=== PATIENT | male | born 1960 | race African-American/Black ===

== ENCOUNTER 2023-09-04 20:27 | Emergency (ER) | payer BC, OTHER ==
[~2023-09-04] VITALS: Ht 162.6 cm; Wt 69.7 kg
[2023-09-04] MEDS: IBUPROFEN 800 MG TAB PO ONE (22:43)
[2023-09-04] MEDS ORDERED: IBUP-1455 PO (23:46)
[2023-09-04] MEDS ORDERED: ACET500T58 PO (23:46)
[2023-09-04 23:55] VITALS: BP 116/74; PULSE 75; RESP 17; TEMP 98.6; O2SAT 95
== END 2023-09-04 23:59 | disposition home or self-care (01) ==
LOC: ER 20:27
DX: S39.012A Strain of muscle, fascia and tendon of lower back, initial encounter (principal); M54.16 Radiculopathy, lumbar region; V89.2XXA Person injured in unspecified motor-vehicle accident, traffic, initial encounter; Y93.89 Activity, other specified; Y92.89 Other specified places as the place of occurrence of the external cause; Y99.8 Other external cause status
CPT/HCPCS: 72070; 72100

== ENCOUNTER 2024-01-26 06:24 | Inpatient (IN) | payer BC ==
[2024-01-22 10:33] LABS: Urine Bacteria None Seen /hpf (None Seen)
[2024-01-22 10:48] LABS: Eosinophils # (auto) 0.1 10 ^3/uL (0-0.8); Monocytes # (auto) 0.6 10 ^3/uL (0-1.3); Red Cell Distribution Width 14.2 % (11.8-14.3); White Blood Cell 5.1 10^3/uL (4.4-10.8)
[2024-01-22 10:50] LABS: Basophils # (auto) 0 10 ^3/uL (0-0.2); Basophils % (auto) 0.8 % (0.0-2.0); Eosinophils % (auto) 2.2 % (0.0-7.0); Hematocrit 45.6 % (41.0-53.0); Hemoglobin 14.7 g/dL (13.5-17.5); Lymphocytes % (auto) 19.6 % (10.0-50.0); Mean Corpuscular Hemoglobin 25.8 pg (28.0-32.0); Mean Corpuscular Hgb Conc. 32.3 g/dL (32.0-36.0); Mean Corpuscular Volume 79.9 fL (80.0-100.0); Monocytes % (auto) 11.3 % (0.0-12.0); Neutrophils # (auto) 3.4 10 ^3/uL (1.6-8.6); Neutrophils % (auto) 66.1 % (37.0-80.0); Nucleated Red Blood Cells % 0.2 %; Platelet Count (auto) 250 10^3/uL (140-450)
[2024-01-22 10:54] LABS: Urine Blood TRACE /uL (Negative); Urine Clarity Clear (Clear); Urine Color Light-Yellow (Yellow); Urine Mucus FEW (None Seen); Urine Protein, UAD Negative (Negative); Urine Specific Gravity 1.026 (1.001-1.035); Urine Urobilinogen Normal (Negative); Urine WBC 1 /hpf (0 - 3)
[2024-01-22 11:09] LABS: Alanine Aminotransferase 24 U/L (7-40); Albumin 4.6 g/dL (3.2-4.8); Alkaline Phosphatase 131 U/L (46-116); Anion Gap 6 (5-15); Aspartate Aminotransferase 14 U/L (13-40); BUN/Creatinine Ratio 8.9 (10.0-20.0); Blood Urea Nitrogen 12 mg/dL (9-23); Calcium 10.1 mg/dL (8.7-10.4); Carbon Dioxide 29 mmol/L (20-31); Chloride 107 mmol/L (98-107); Glucose 94 mg/dL (74-106); Sodium 142 mmol/L (136-145)
[2024-01-22 11:10] LABS: Bilirubin, Total 0.6 mg/dL (0.2-1.0); Total Protein 7.1 g/dL (5.7-8.2)
[2024-01-22 11:15] LABS: INR 1.02 (0.9-1.15); Partial Thromboplastin Time 27.3 SEC (24.5-34.5); Prothrombin Time 10.8 sec (9.3-11.8)
[~2024-01-26] VITALS: Ht 162.6 cm; Wt 78.8 kg
[2024-01-26] MEDS ORDERED: LIDOCAINE 2% TOPICAL JELLY 5 ML URJT TOP ONE (06:54)
--- NOTE | 2024-01-26 06:56 | DVHHP2 ---
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 History of Present Illness Timing/Duration of Neck Pain: Constant, Getting worse Quality of Neck Pain: Aching, Burning, Sharpness, Stabbing Neck Pain Radiation: Head, Upper extremity Method of Injury/Prior Factors: Unknown Modifying Factors for Neck Nathaly: None Associated Symptoms of Neck Pa: Numbness in upper extremi, Numbness in fingers, Tingling in upper extremi, Tingling in fingers, Sensory loss, Motor loss Review of Systems Constitutional: No symptom reported Ears, Nose, & Throat: No symptom reported Eyes: No symptom reported Pulmonary/Respiratory: No symptom reported Cardiovascular: No symptom reported Gastrointestinal: No symptom reported Genitourinary: No symptom reported Musculoskeletal: Neck pain, Hand pain, Muscle stiffness, Muscle atrophy Skin: No symptom reported Psychiatric: No symptom reported Endocrine: No symptom reported Hemotologic/Lymphatic: No symptom reported H&P Exam General Appeara: Well developed, Well nourished, Normal Appearance Head Exam: Normal inspection Neck Exam: Normal inspection, Non-tender, Normal alignment, Limited range of motion, Muscle spasm, Painful range of motion, Paraspinous muscle tender, Stiff neck, Tenderness, Tender lateral, Tender midline Eye Exam: bilateral eye Normal inspection, bilateral eye PERRL, bilateral eye EOMI Ear Exam: bilateral ear Auricle normal, bilateral ear Canal normal, bilateral ear TM normal Nasal Exam: Normal inspection Mouth: Normal Inspection Pulmonary/Respiratory: Normal inspection, Normal breath sounds, Chest non- tender, Lungs clear Cardiovascular/Chest: Normal inspection, Regular rate, Normal Rhythm Abdominal Exam: Normal bowel sounds, Soft, No tenderness, No hepatospenomegaly, No masses Rectal Exam: Deferred Back Exam: Normal inspection Pelvic Exam: Not done Male Genital Exam: Not done Shoulder Exam: Normal inspection, Non-tender, Normal ROM Elbow/Forearm Exam: Normal inspection, Non-tender, Normal ROM Wrist Exam: Normal inspection, Non-tender, Normal ROM Hand Exam: Normal inspection, Non-tender, Normal ROM Hip exam: Normal inspection, Non-tender, Normal range of motion Legs: bilateral leg non-tender, bilateral leg normal inspection, bilateral leg normal range of motion, bilateral leg no evidence of injury Knees: bilateral knee non-tender, bilateral knee normal inspection, bilateral knee normal range of motion, bilateral knee no evidence of injury Ankle Exam: bilateral ankle Normal inspection, bilateral ankle Non-tender, bilateral ankle Normal range of motion, bilateral ankle No evidence of injury Foot: bilateral foot non-tender, bilateral foot normal inspection, bilateral foot normal range of motion, bilateral foot no evidence of injury Tendon/ Neuro: Motor deficit, Sensory deficit SHELTER MONITOR Exam: Normal hearing, Normal speech, PERRL Motor/Sensory: Weak motor strength RUE, Weak motor strength LUE Deep Tendon Ref: All intact Neuro/Mental St: Alert, Oriented Appearance: Appropriate appearance, Appropriate insight Eye contact/ Speech: Cooperative, Good eye contact, Normal speech Coordination/Gait: Normal finger->nose, Normal gait, Negative Romberg's sign Skin Exam: Normal inspection, Normal color, Warm/dry Lymphatic: Normal inspection Labs/Xrays Labs Test 01/22/24 10:25 Range/Units White Blood Count 5.1 4.4-10.8 10^3/uL Red Blood Count 5.70 4.5-5.90 10^6/uL Hemoglobin 14.7 13.5-17.5 g/dL Hematocrit 45.6 41.0-53.0 % Mean Corpuscular Volume 79.9 L 80.0-100.0 fL Mean Corpuscular Hemoglobin 25.8 L 28.0-32.0 pg Mean Corpuscular Hemoglobin Concent 32.3 32.0-36.0 g/dL Red Cell Distribution Width 14.2 11.8-14.3 % Platelet Count 250 140-450 10^3/uL Mean Platelet Volume 7.3 6.9-10.8 fL Neutrophils (%) (Auto) 66.1 37.0-80.0 % Lymphocytes (%) (Auto) 19.6 10.0-50.0 % Monocytes (%) (Auto) 11.3 0.0-12.0 % Eosinophils (%) (Auto) 2.2 0.0-7.0 % Basophils (%) (Auto) 0.8 0.0-2.0 % Neutrophils # (Auto) 3.4 1.6-8.6 10 ^3/uL Lymphocytes # (Auto) 1.0 0.4-5.4 10 ^3/uL Monocytes # (Auto) 0.6 0-1.3 10 ^3/uL Eosinophils # (Auto) 0.1 0-0.8 10 ^3/uL Basophils # (Auto) 0 0-0.2 10 ^3/uL Nucleated Red Blood Cells 0.2 % Prothrombin Time 10.8 9.3-11.8 sec Prothrombin Time INR 1.02 0.9-1.15 Activated Partial Thromboplast Time 27.3 24.5-34.5 SEC Urine Color Light-yellow Yellow Urine Clarity Clear Clear Urine pH 6.0 5.0-9.0 Urine Specific [place] 1.026 1.001-1.035 Urine Protein Negative Negative Urine Ketones Negative Negative Urine Blood Trace H Negative /uL Urine Nitrite Negative Negative Urine Bilirubin Negative Negative Urine Urobilinogen Normal Negative mg/dL Urine Leukocyte Esterase Negative Negative /uL Urine RBC 4 0 - 3 /hpf Urine WBC 1 0 - 3 /hpf Urine Squamous Epithelial Cells None seen <5 /hpf Urine Bacteria None seen None Seen /hpf Urine Mucus Few None Seen Urine Glucose Normal Normal mg/dL Sodium Level 142 136-145 mmol/L Potassium Level 4.0 3.5-5.1 mmol/L Chloride Level 107 98-107 mmol/L Carbon Dioxide Level 29 20-31 mmol/L Anion Gap 6 5-15 Blood Urea Nitrogen 12 9-23 mg/dL Creatinine 1.35 H 0.700-1.30 mg/dL Glomerular Filtration Rate Calc 59 >90 mL/min BUN/Creatinine Ratio 8.9 L 10.0-20.0 Serum Glucose 94 74-106 mg/dL Calcium Level 10.1 8.7-10.4 mg/dL Total Bilirubin 0.6 0.2-1.0 mg/dL Aspartate Amino Transferase (AST) 14 13-40 U/L Alanine Aminotransferase (ALT) 24 7-40 U/L Alkaline Phosphatase 131 H 46-116 U/L Total Protein 7.1 5.7-8.2 g/dL Albumin 4.6 3.2-4.8 g/dL MRI cervical spine reveals multi level degenerative disc disease with central canal and foraminal stenosis Assessment/Plan Primary Diagnosis cervical spinal stenosis with myeloradiculopathy Plan admit for elective cervical spine surgery Plan discussed with: Patient MANE MOSELEY MD Jan 26, 2024 06:56
[2024-01-26] MEDS ORDERED: DexAMETHasone SOD PHOS 10MG/1ML VIAL INJ ONE (06:59)
[2024-01-26] MEDS ORDERED: ONDANSETRON HCL 4 MG/2 ML VIAL ONE (06:59)
[2024-01-26] MEDS ORDERED: GLYCOPYRROLATE 0.2 MG/ML 1ML VIAL ONE (06:59)
[2024-01-26] MEDS ORDERED: ROCURONIUM 10MG/ML 10ML VIAL IV ONE (06:59)
[2024-01-26] MEDS ORDERED: fentaNYL CITRATE 100 MCG/2 ML VL ONE (07:00)
[2024-01-26] MEDS ORDERED: PROPOFOL 10 MG/ML 20 ML IV ONE ×2 (07:00→09:02)
[2024-01-26] MEDS: oxyCODONE ER 20 MG TAB PO ONE (07:15)
[2024-01-26] MEDS: ACETAMINOPHEN IV 1000 MG/100ML (10MG/ML) IV ONE (07:15)
[2024-01-26] MEDS: GABAPENTIN 400 MG CAP PO ONE (07:15)
[2024-01-26] MEDS ORDERED: ceFAZolin 1GM VL ONE (07:30)
[2024-01-26] MEDS ORDERED: ePHEDrine SULFATE 50 MG/ML AMP ONE (07:50)
[2024-01-26] MEDS ORDERED: HYDROcodone-ACET 10/325MG TAB PO PRN (10:00)
[2024-01-26] MEDS ORDERED: ONDANSETRON HCL 4 MG/2 ML VIAL IV PRN ×2 (10:00→10:45)
[2024-01-26] MEDS ORDERED: MORPHINE SULFATE INJ 2 MG/ml SYRG IV PRN ×2 (10:00)
[2024-01-26] MEDS ORDERED: NITROGLYCERIN 0.4 MG SL TAB SL PRN (10:00)
[2024-01-26 10:28] VITALS: PULSE 77; RESP 11; O2SAT 100
[2024-01-26 10:38] VITALS: PULSE 76; RESP 11; O2SAT 100
[2024-01-26] MEDS ORDERED: FLUMAZENIL 0.1 MG/ML INJ 10ML MDV IV PRN (10:45)
[2024-01-26] MEDS ORDERED: oxyCODONE HCL 5MG TAB PO PRN (10:45)
[2024-01-26] MEDS ORDERED: hydrALAZINE HCL 20 MG/ML VL IV PRN (10:45)
[2024-01-26] MEDS ORDERED: fentaNYL CITRATE 100 MCG/2 ML VL IV PRN (10:45)
[2024-01-26] MEDS ORDERED: NALOXONE HCL 0.4 MG/ML VIAL IV PRN (10:45)
[2024-01-26] MEDS ORDERED: ePHEDrine SULFATE 50 MG/ML AMP IV PRN (10:45)
[2024-01-26] MEDS ORDERED: LATA0.008 EACHEYE (11:26)
[2024-01-26] MEDS: MAGNESIUM SULFATE 1GM/100ML 100 ML IV ONE (11:36)
[2024-01-26] MEDS: LIDOCAINE 4MG/ML IV SOLN 500 ML IV ONE (11:36)
[2024-01-26] MEDS: levoFLOXacin 500MG 100 ML IV ONE (11:36)
[2024-01-26] MEDS: TRANEXAMIC ACID 20 ML ONE (11:36)
[2024-01-26] MEDS: LIDOCAINE 2%HCL (LOCAL ANESTH.) INJ 10ml MDV ONE (11:37)
[2024-01-26] MEDS: HYDROmorphone HCL 2 MG/ML VL/or syr IV PRN (12:40)
[2024-01-26] MEDS: DOCUSATE SOD 100 MG CAP PO SCH (13:19)
--- NOTE | 2024-01-26 13:57 | DVH ---
EXAM: CT STROKE CTH HISTORY: Evaluate for CVA. COMPARISON: None TECHNIQUE: Axial images of the head were obtained and reformatted in coronal and sagittal planes. All CT scans at this medical facility are performed using dose modulation techniques as appropriate t o a performed exam including the following: Automated exposure control was utilized; adjustment of th e MA and/or KV according to patient size; and use of iterative reconstruction technique. CT Dose: CTDI volume is 54.31 mGy. Dose-length product is 961.74 mGy*cm FINDINGS: There is no evidence of acute intracranial hemorrhage, mass, mass effect midline shift. There is no h ydrocephalus or extra-axial fluid collection. Page-white matter differentiation is maintained.. The visualized paranasal sinuses and mastoid air cells are clear. The calvarium is intact. IMPRESSION: 1. No acute intracranial process. HS:Y
[2024-01-26] MEDS: ceFAZolin 1GM/50ML 50 ML IV SCH (14:30)
--- NOTE | 2024-01-26 14:51 | DVHOP2 ---
Operative Report - 2 Report Details Date: 01/26/24 Preop Diagnosis: cervical spinal stenosis with myeloradiculopathy Postop Diagnosis: cervical spinal stenosis with myeloradiculopathy Surgeon: Michael Moseley MD Manager Residential: Joanne alvarado NP Anesthesiologist: odalis Anesthesia: General Consent: The patient was informed of the risks and benefits of the procedure. These include but are not limited to complications of anesthesia, postoperative infection, incomplete relief of symptoms, recurrence of symptoms, damage to blood vessels, nerves and tendons, deep venous thrombosis, pulmonary embolism and possible need for repeat surgery in the future. Name of Procedure Performed see detailed note Procedure Details Procedure Details: Pre Op Diagnosis: Cervical Degenerative Disk Disease and Severe Spinal Stenosis Causing incapacitating neck pain, radiculopathy and progressive neurologic deficit Post Op Diagnosis: 1. Cervical Degenerative Disk Disease and Spinal Stenosis Causing incapacitating neck pain, radiculopathy and progressive neurologic deficit Procedure: Cervical 3 to 4 anterior cervical discectomy with Cervical 3-4 foraminotomies and facetectomies to decompression the spinal canal and Cervical 4 nerve roots Cervical 4 to 5 anterior cervical discectomy with Cervical 4-5 foraminotomies and facetectomies to decompression the spinal canal and Cervical 5 nerve roots Cervical 5 to 6 anterior cervical discectomy with Cervical 5-6 foraminotomies and facetectomies to decompression the spinal canal and Cervical 6 nerve roots Cervical 6 to 7 anterior cervical discectomy with cervical 6-7 foraminotomies and facetectomies to decompress then spinal canal and cervical 7 nerve roots Cervical 3-7 anterior cervical Fusion Cervical 3-7 anterior cervical instrumentation with freestanding cages Cervical 3-4 placement of allograft prosthetic device Cervical 4-5 placement of allograft prosthetic device Cervical 5-6 placement of allograft prosthetic device Cervical 6-7 placement of allograft prosthetic device Microscope for micro dissection Surgeon: Michael Moseley MD Anesthesia: General Assist: Joanne Alvarado NP Fluids and EBL: see anesthesia note Procedure Note: The patient was seen in the Pre-anesthesia Care Unit and the site of the incision was initialed by me with a felt tipped marker. All questions by the patient were answered to the satisfaction of the patient and the chart was revi ewed. The patient was taken to the operating room and placed supine on the [facility] Flat top table. General anesthesia was induced. Neuromonitoring leads were placed. A rolled towel was placed between the shoulder blades to hyperextend out the chest which will allow better exposure of the cervical spine. Halter traction to 10 pounds was placed. The arms were padded and add ucted to the patients side making sure all pulses in the hands were present. Tape traction was undertaken on the shoulders to give us better radiographic exposure of the distal cervical spine. A gel-pad was placed under the occiput and 5 degrees of extension was placed on the neck without adverse effects to the patient. The anterior neck was prepped and draped. Pre-operative antibiotics were given 30 minutes prior to the start of the procedure. A c-arm fluoroscope was used to bucky out the incision site. At this time, a time out was taken per usual protocol. Next an incision was made through the skin with a 15 blade scalpel through the subcutaneous tissue down to the platysma. Self-retainers were placed. The platysma was incised along the longitudinal border with a Metzenbaum scissors. Blunt dissection was made through the deep cervical and pre-tracheal fascia taking care to protect the carotid sheath laterally and the Trachea/esophagus medially. The dissection was carried down to the prevertebral fascia. Any crossing vessels were ligated using a vascular clip or coagulated with a bovie. An esophageal retractor was next used to retract the trachea/esophagus and a bent [address] through the anterior annulus of the cervical disk and a lateral C-arm fluoroscopic image was taken to confirm that we were at the correct level. Next, bovie electrocautery was used to expose the bones of cervical 3,4,5,6 and 7 and bipolar electrocuatery was used to lift up the Longus colli and capitus m uscles. Black-Belt Self Retainers were used to retract the longus colli and capitus muscles bilaterally as well as the trachea/esophagus to the right and the carotid sheath to the left. Smooth thin Black-Belt retractors were placed proximally and distally and a needle was placed again in the anterior annulus of the disk and an image taken to confirm the correct level. At this point, the microscope was wheeled in and an 11 blade scalpel incised the anterior annulus of the cervical 3/4 and 4/5 and 5/6 and 6/7 disks. Next, straight and curved curettes removed the remainder of the disks all the way down to the posterior longitudinal ligament. Carefully, a Kerison number one rongeur incised the posterior longitudinal ligament at the lateral end of the above disks and using a micro, blunt tip nerve hook to separate the posterior longitudinal ligament from the dura, alternating 1 mm and 2 mm Kerison rongeurs removed the posterior longitudinal ligament. Next, Kerison 1mm and 2 mm rongeurs were alternated to get under the uncinate processes and undercut them to perform foraminotomies and factectomies at the cervical 3/4 and 4/5 and 5/6 and 6/7 levels to decompress the central canal and cervical 4,5,6 and 7 nerve roots. Next the microscope was wheeled away and the c-arm fluoroscope was wheeled into the field and a lateral image was obtained. Increasing size graft trials were used starting at a 5 mm thick size until the proper tension in the disk space and height moravian obtained. We then placed final free standing cages at C3/4 and 4/5 ,5/6 and 6/7 . Satisfactory placement was confirmed in the AP and lateral views using a C-arm fluoroscope. Copious irrigation of the wound with sterile saline and all bleeding was controlled before closure initiated. At this point, a 10 Maori round M[address] Drain was place deep to the Platysma muscle and the Platysma was approximated with one interrupted 0-Vicryl suture. The subcutaneous tissue was closed with interrupted 2-0 vicryl sutures and the skin was closed with jamie. Sterile dressings were placed and a cervical collar placed, the patient extubated, transferred to the stretcher and taken to the Recovery Room in unremarkable condition. Other Notes: Following the case, in PACU, the patient had placement of a [place] J equivalent cervical collar and external bone stimulator Condition Stable Disposition Still a Patient MICHAEL MOSELEY MD Jan 26, 2024 14:51
[2024-01-26] MEDS: CYCLOBENZAPRINE HCL 10 MG TAB PO SCH (15:07)
[2024-01-26] MEDS: TAMSULOSIN HYDROCHLORIDE 0.4 MG CAP PO ONE (15:15)
[2024-01-26 15:21] LABS: Basophils # (auto) 0 10 ^3/uL (0-0.2); Eosinophils # (auto) 0 10 ^3/uL (0-0.8); Monocytes # (auto) 0.1 10 ^3/uL (0-1.3)
[2024-01-26 15:23] LABS: Basophils % (auto) 0.3 % (0.0-2.0); Hemoglobin 13.9 g/dL (13.5-17.5); White Blood Cell 9.1 10^3/uL (4.4-10.8)
--- NOTE | 2024-01-26 15:25 | DVH ---
CLINICAL INFORMATION: 64 years old, Male; C3-7 DISCECTOMY/ FUSION. TECHNIQUE: Fluoroscopy was provided for assistance during cervical discectomy and fusion. 4 fluorosco pic images were submitted. Total fluoroscopy time was 3 s. Cumulative radiation dose was 0.15 mGy. COMPARISON: None FINDINGS: Fluoroscopy was provided for assistance during anterior cervical discectomy and fusion. Brittany ges demonstrate intraoperative changes from anterior cervical discectomy and fusion at C3-C4, C4-C5, C5-C6, and C6-C7. IMPRESSION: Fluoroscopy was provided for assistance during anterior cervical discectomy and fusion as described a kulwant. Please correlate with the operative report.
[2024-01-26 15:28] LABS: Chloride 109 mmol/L (98-107); Lymphocytes # (auto) 0.4 10 ^3/uL (0.4-5.4); Potassium 3.8 mmol/L (3.5-5.1); Sodium 142 mmol/L (136-145)
[2024-01-26 15:29] LABS: Anion Gap 10 (5-15); Carbon Dioxide 23 mmol/L (20-31)
[2024-01-26 15:30] LABS: Calcium 9.4 mg/dL (8.7-10.4); Hematocrit 43.6 % (41.0-53.0); Lymphocytes % (auto) 4.8 % (10.0-50.0); Mean Corpuscular Hemoglobin 25.8 pg (28.0-32.0); Mean Corpuscular Hgb Conc. 31.9 g/dL (32.0-36.0); Mean Corpuscular Volume 80.9 fL (80.0-100.0); Monocytes % (auto) 1.3 % (0.0-12.0); Neutrophils # (auto) 8.5 10 ^3/uL (1.6-8.6); Neutrophils % (auto) 93.6 % (37.0-80.0); Platelet Count (auto) 231 10^3/uL (140-450); Red Blood Cells 5.39 10^6/uL (4.5-5.90); Red Cell Distribution Width 14.4 % (11.8-14.3)
[2024-01-26 15:35] LABS: Blood Urea Nitrogen 14 mg/dL (9-23); Glucose 145 mg/dL (74-106); Magnesium 2.4 mg/dL (1.6-2.6)
[2024-01-26 16:00] VITALS: BP 107/51; PULSE 91; RESP 19; TEMP 97.5; O2SAT 94
[2024-01-26] MEDS: D5W/SOD CHLO 0.9% 1,000 ML IV SCH (16:37)
[2024-01-26 16:59] VITALS: BP 107/51; PULSE 91; RESP 19; TEMP 97.5; O2SAT 94
[2024-01-26 20:00] VITALS: PULSE 81; RESP 20; O2SAT 98
[2024-01-26 21:00] VITALS: BP 117/69; PULSE 95; RESP 20; TEMP 97.8; O2SAT 98
[2024-01-27] VITALS (8 sets, daily range): BP systolic 98–120; BP diastolic 39–75; PULSE 78–104; RESP 16–22; TEMP 97.8–99.7; O2SAT 65–100
--- NOTE | 2024-01-27 14:32 | DVHPN2 ---
Subjective Patient reports having neck pain, and poor oral intake secondary to difficulty swallowing. Patient also states that he does not want take any narcotics for pain control. Recommend he attempt taking Tylenol which was ordered. Reviewed: Care Plan, H&P, Labs, Medications Changes from previous H/P or p: No Changes General: Per HPI Objective Vitals Vital Signs Date Time Temp Pulse Resp B/P (MAP) Pulse Ox O2 Delivery O2 Flow Rate FiO2 01/27/24 13:00 98.2 89 16 104/63 (77) 92 98.2 01/27/24 08:00 Room Air* 0 21 Intake/Output Intake and Output 01/27/24 07:00 Intake Total 1035 ml Output Total 2250 ml Balance -1215 ml Intake Oral 785 ml IV Total 250 ml Output Urine Total 2250 ml Drainage Total 0 ml General Appearance: Alert, Oriented X3, Cooperative, mild distress HEENT: Atraumatic, PERRLA Neck: Other (Dressing dry and intact and now) Lungs: Clear to auscultation, Normal air movement Cardiovascular: Normal S1, Normal S2 Musculoskeletal: Normal sensory function, Normal motor function Extremities: No clubbing, No cyanosis Psych/Mental Status: Mental status NL (Dressing dry and intact to neck), Mood NL Medications Current Medications Medications Dose Ordered Sig/Nic Route Start Time Stop Time Status Last Admin Dose Admin Dextrose/Sodium Chloride 1,000 ml @ 100 mls/hr Q10H IV 01/26/24 10:00 01/27/24 05:33 100 MLS/HR Ondansetron HCl 4 mg Q4HP PRN IV 01/26/24 10:00 Acetaminophen 650 mg Q6HP PRN PO 01/26/24 10:00 Acetaminophen/ Hydrocodone Bitart 1 tab Q6HP PRN PO 01/26/24 10:00 Morphine Sulfate 1 mg Q4HP PRN IV 01/26/24 10:00 Cyclobenzaprine HCl 10 mg TID PO 01/26/24 14:00 01/27/24 13:11 10 MG Docusate Sodium 100 mg BID PO 01/26/24 10:00 Cefazolin Sodium 50 ml @ 100 mls/hr Q8HR IV 01/26/24 14:00 01/28/24 06:29 01/27/24 13:11 100 MLS/HR Nitroglycerin 0.4 mg Q5MINP PRN SL 01/26/24 10:00 Morphine Sulfate 2 mg Q30M PRN IV 01/26/24 10:00 Oxycodone HCl 10 mg ONCE PRN PO 01/26/24 10:45 Tamsulosin HCl 0.4 mg QPM PO 01/27/24 18:00 Laboratory Results Laboratory Tests 01/26/24 14:32 Chemistry Test 01/26/24 14:32 Calcium Level 9.4 mg/dL (8.7-10.4) Magnesium Level 2.4 mg/dL (1.6-2.6) Urinalysis Test 01/22/24 10:25 Urine Color Light-yellow (Yellow) Urine Clarity Clear (Clear) Urine pH 6.0 (5.0-9.0) Urine Specific [place] 1.026 (1.001-1.035) Urine Protein Negative (Negative) Urine Ketones Negative (Negative) Urine Blood Trace /uL (Negative) H Urine Nitrite Negative (Negative) Urine Bilirubin Negative (Negative) Urine Urobilinogen Normal mg/dL (Negative) Urine Leukocyte Esterase Negative /uL (Negative) Urine RBC 4 /hpf (0 - 3) Urine WBC 1 /hpf (0 - 3) Urine Squamous Epithelial Cells None seen /hpf (<5) Urine Bacteria None seen /hpf (None Seen) Urine Mucus Few (None Seen) Urine Glucose Normal mg/dL (Normal) Labs and/or images reviewed: Labs reviewed by me, Image(s) reviewed by me Assessment/Plan Assessment/Plan Impression: -cervical radiculopathy, status post cervical spinal surgery -probable chronic kidney disease stage IIIA Plan: -events surgical site benign. Postop labs benign. -change diet texture, add nutritional supplementation -pain management, Tylenol, morphine and Shepherd ordered if patient was willing to take -DC planning per spinal surgery Total time spent with patient discussing and formulating plan of care: 35 minutes. This medical document was created using an electronic medical record system with [employer] dictation system. Although this document has been carefully reviewed, there may still be some phonetic and typographical errors. These areas are purely typographical due to imperfections of the software programs, and do not reflect any compromise in the patient's medical care. Plan discussed with: Patient, Other Date of Service: Jan 27, 2024 Billing Provider: DEMETRIO DE LA CRUZ NP Common Visit Codes: [id number] INP/OBS CARE(HIGH) DEMETRIO DE LA CRUZ NP Jan 27, 2024 14:32
[2024-01-27] MEDS: TAMSULOSIN HYDROCHLORIDE 0.4 MG CAP PO SCH (18:00)
[2024-01-27] MEDS: Ensure Enlive Strawberry 8oz Bottle PO SCH (18:38)
--- NOTE | 2024-01-27 20:14 | DVHPN2 ---
Progress Note - Surgical Date Seen: Jan 27, 2024 Post op day Post op day: 1 Subjective Patient reports: No new complaints, Other (drain leaking from under the drain insertion site.) Review of Systems: HEENT:Abnormal (painful to swallow- patient able to drink water without new problems, order placed for Cepacol lozenges.), CVS:Normal, RESPIRATORY:Normal, GI:Normal, :Normal, MSK:Normal, NEURO:Normal Objective Vital signs Vital Sign Date Time Temp Pulse Resp B/P (MAP) Pulse Ox O2 Delivery O2 Flow Rate FiO2 01/27/24 16:28 98.0 95 17 120/75 (90) 65 98.0 01/27/24 08:00 Room Air* 0 21 Total Intake and Output 01/26/24 01/26/24 01/27/24 15:00 23:00 07:00 Intake Total 200 ml 835 ml Output Total 0 ml 250 ml 2000 ml Balance 0 ml -50 ml -1165 ml Medications Current Medications Medications Dose Ordered Sig/Nic Route Start Time Stop Time Status Last Admin Dose Admin Dextrose/Sodium Chloride 1,000 ml @ 100 mls/hr Q10H IV 01/26/24 10:00 01/27/24 16:32 100 MLS/HR Ondansetron HCl 4 mg Q4HP PRN IV 01/26/24 10:00 Acetaminophen 650 mg Q6HP PRN PO 01/26/24 10:00 Acetaminophen/ Hydrocodone Bitart 1 tab Q6HP PRN PO 01/26/24 10:00 Morphine Sulfate 1 mg Q4HP PRN IV 01/26/24 10:00 Cyclobenzaprine HCl 10 mg TID PO 01/26/24 14:00 01/27/24 13:11 10 MG Docusate Sodium 100 mg BID PO 01/26/24 10:00 Cefazolin Sodium 50 ml @ 100 mls/hr Q8HR IV 01/26/24 14:00 01/28/24 06:29 01/27/24 13:11 100 MLS/HR Nitroglycerin 0.4 mg Q5MINP PRN SL 01/26/24 10:00 Morphine Sulfate 2 mg Q30M PRN IV 01/26/24 10:00 Oxycodone HCl 10 mg ONCE PRN PO 01/26/24 10:45 Tamsulosin HCl 0.4 mg QPM PO 01/27/24 18:00 01/27/24 18:00 0.4 MG Enteral Nutritional Formula 240 ml BIDWM PO 01/27/24 18:00 01/27/24 18:38 240 ML Laboratory Laboratory Tests 01/26/24 14:32 Test 01/26/24 14:32 Range/Units Serum Glucose 145 H 74-106 mg/dL Examination: GENERAL:Normal, HEENT:Abnormal (Surgical site all approximated with jamie, swelling noted, drainage site is draining serosanguineous fluid patient is experiencing expected postoperative pain), NECK:Normal (Surgical site all approximated with jamie, swelling noted, drainage site is draining serosanguineous fluid patient is experiencing expected postoperative pain), LUNGS:Normal, CVS:Normal, ABDOMEN:Normal, MSK:Normal, SKIN:Normal (Left anterior cervical incision well approximated with jamie no redness noted), NEURO:Normal, :Normal Problem List/Assessment/Plan Problems: (1) Postoperative pain after spinal surgery (2) Muscle spasms of neck (3) Lumbar radiculopathy (4) Lumbar strain Assessment and Plan Disposition: -Pending -Discharge RX: Pending -Follow up appointment: with Dr Aguilera two weeks [place] [phone] [facility] [address] [place] [id number] -Pain: - IV pain meds post op day 1, with PO supplementation, goal is to progress weaning off IV medications and control pain with PO only. - Muscle relaxers scheduled administration. This is a beneficial medications for the incisional pain as it is mostly related to muscle spasms. Flexeril 10 mg TID - Cepacol throat lozenges as needed for sore throat -Antibiotics Operative recommendations: -Postoperative dose:-Post operative antibiotics cefazolin 1 g IV piggyback every 8 hours x 48 hours total of 6 doses -DVT PPX: -Hold all chemical DVT/ blood thinners for 14 days postoperatively -use mechanical DVT PPX such as SCD's, ambulation -Activity: -Pending PT evaluation and patients progression -Sit at side of bed for meals -Goal: Ambulate independently and safely (may use assistive devices if needed) -Brace: - [place] collar for comfort -Medical Therapy goals: -Afebrile- Patient may develop a expected post operative fever by day 2-3, this may not be accompanied with a elevation in WBC. if fever develops: Acetaminophen for fever. Albuterol nebulizer Tx every 12 hours for 24 hours to facilitate adequate lung expansion and prevent development of atelectasis. -Euglycemic: bloods sugars under 130mmol/L for optimal healing -Normotensive: Avoid events of hypertension. This helps to keep post operative healing intact and avoids destabilization of beneficial hemostatic coagulation. Drain: Removed today patient tolerated well -Riley: -DC in OR - patient will benefit from a condom catheter -Dressings -Anterior cervical patients: Initial surgical dressing may be reinforced if needed. If there is excessive bleeding, leaking, drainage in the bulb drain notify provider -Bowel management: -Colace 100mg bid -Diet: -Clear liquid diet and advance as patient tolerates within dietary limitations ( example: diabetic, Cardiac) -Incentive Spirometer: -10 x hour while awake, RN please educate and observe repeat demonstration, have IS at bedside POD #1 -X-rays: - none indicated at this time -Consults: -Physical Therapy evaluation, treatment recommendations, and discharge recommendations Call with questions [facility]- Orthopaedic Spine Surgery nurse practitioner For Dr Tierney Aguilera [phone]- for staff use only Patient was examined, chart reviewed, labs evaluated, and diagnostic studies and findings analyzed. Case was discussed with Dr. Michael Aguilera who formulated the plan of care. This medical document was created using an electronic medical record system with [employer] dictation system. Although this document has been carefully reviewed, there might still be some phonetic and typographical errors. These areas are purely typographical due to imperfections of the software programs, and do not reflect any compromise in the patient's medical care. Plan discussed with Plan discussed with: Patient, Other (sriedvi ESPINOZA) Visit Coding Surgery Date of Service if different f: Jan 27, 2024 Billing Provider: CAROLINE MCLEOD NP Surgery Visit Codes: NOT BILLABLE CAROLINE MCLEOD NP Jan 27, 2024 20:14
[2024-01-27] MEDS: DexAMETHasone SOD PHOS 10MG/1ML VIAL INJ IV ONE (22:03)
[2024-01-27] MEDS: THROAT LOZENGES(CEPASTAT) MT PRN (22:03)
[2024-01-28] VITALS (8 sets, daily range): BP systolic 98–126; BP diastolic 60–74; PULSE 79–94; RESP 16–20; TEMP 98–99.3; O2SAT 92–98
[2024-01-28] MEDS: ACETAMINOPHEN 325 MG TAB PO PRN (05:49)
--- NOTE | 2024-01-28 09:37 | DVHPN2 ---
Subjective Patient reports having neck pain, and poor oral intake secondary to difficulty swallowing. Patient also states that he does not want take any narcotics for pain control. Recommend he attempt taking Tylenol which was ordered. Reviewed: Care Plan, H&P, Labs, Medications Changes from previous H/P or p: No Changes General: Per HPI Objective Vitals Vital Signs Date Time Temp Pulse Resp B/P (MAP) Pulse Ox O2 Delivery O2 Flow Rate FiO2 01/28/24 05:00 98.0 89 20 126/73 (90) 98 98.0 01/27/24 20:00 Room Air* 0 21 Intake/Output Intake and Output 01/28/24 07:00 Intake Total 2910 ml Output Total 2000 ml Balance 910 ml Intake Oral 1560 ml IV Total 1350 ml Output Urine Total 2000 ml # Voids 30 General Appearance: Alert, Oriented X3, Cooperative, mild distress HEENT: Atraumatic, PERRLA Neck: Other (Dressing dry and intact and now) Lungs: Clear to auscultation, Normal air movement Cardiovascular: Normal S1, Normal S2 Musculoskeletal: Normal sensory function, Normal motor function Extremities: No clubbing, No cyanosis Skin: Dry, Intact Psych/Mental Status: Mental status NL (Dressing dry and intact to neck), Mood NL Medications Current Medications Medications Dose Ordered Sig/Nic Route Start Time Stop Time Status Last Admin Dose Admin Dextrose/Sodium Chloride 1,000 ml @ 100 mls/hr Q10H IV 01/26/24 10:00 01/28/24 02:06 100 MLS/HR Ondansetron HCl 4 mg Q4HP PRN IV 01/26/24 10:00 Acetaminophen 650 mg Q6HP PRN PO 01/26/24 10:00 01/28/24 08:20 650 MG Acetaminophen/ Hydrocodone Bitart 1 tab Q6HP PRN PO 01/26/24 10:00 Morphine Sulfate 1 mg Q4HP PRN IV 01/26/24 10:00 Cyclobenzaprine HCl 10 mg TID PO 01/26/24 14:00 01/28/24 05:47 10 MG Docusate Sodium 100 mg BID PO 01/26/24 10:00 Nitroglycerin 0.4 mg Q5MINP PRN SL 01/26/24 10:00 Morphine Sulfate 2 mg Q30M PRN IV 01/26/24 10:00 Oxycodone HCl 10 mg ONCE PRN PO 01/26/24 10:45 Tamsulosin HCl 0.4 mg QPM PO 01/27/24 18:00 01/27/24 18:00 0.4 MG Enteral Nutritional Formula 240 ml BIDWM PO 01/27/24 18:00 01/27/24 18:38 240 ML Throat Lozenges 1 ivy Q2HP PRN MT 01/27/24 20:15 01/27/24 22:03 1 IVY Laboratory Results Laboratory Tests 01/26/24 14:32 Urinalysis Test 01/22/24 10:25 Urine Color Light-yellow (Yellow) Urine Clarity Clear (Clear) Urine pH 6.0 (5.0-9.0) Urine Specific [place] 1.026 (1.001-1.035) Urine Protein Negative (Negative) Urine Ketones Negative (Negative) Urine Blood Trace /uL (Negative) H Urine Nitrite Negative (Negative) Urine Bilirubin Negative (Negative) Urine Urobilinogen Normal mg/dL (Negative) Urine Leukocyte Esterase Negative /uL (Negative) Urine RBC 4 /hpf (0 - 3) Urine WBC 1 /hpf (0 - 3) Urine Squamous Epithelial Cells None seen /hpf (<5) Urine Bacteria None seen /hpf (None Seen) Urine Mucus Few (None Seen) Urine Glucose Normal mg/dL (Normal) Labs and/or images reviewed: Labs reviewed by me, Image(s) reviewed by me Assessment/Plan Assessment/Plan Impression: -cervical radiculopathy, status post cervical spinal surgery -probable chronic kidney disease stage IIIA Plan: -no events overnight. -recommend to get patient out of bed ambulate -change diet texture, add nutritional supplementation -pain management, Tylenol, morphine and [place] ordered if patient was willing to take -DC planning per spinal surgery Total time spent with patient discussing and formulating plan of care: 35 minutes. This medical document was created using an electronic medical record system with [employer] dictation system. Although this document has been carefully reviewed, there may still be some phonetic and typographical errors. These areas are purely typographical due to imperfections of the software programs, and do not reflect any compromise in the patient's medical care. Plan discussed with: Patient, Other (RN) My Orders Orders - DEMETRIO DE LA CRUZ SONOGRAPHER Procedure Category Date Status Time Regular Diet DIET 01/27/24 Transmitted Dinner Nutritional PHA 01/27/24 In Process Supplements (Ensure 18:00 Transfer Orders XFER 01/28/24 Transmitted 08:03 Date of Service: Jan 28, 2024 Billing Provider: DEMETRIO DE LA CRUZ NP Common Visit Codes: [id number] INP/OBS CARE(MOD) DEMETRIO DE LA CRUZ NP Jan 28, 2024 09:37
[2024-01-29] VITALS (7 sets, daily range): BP systolic 100–120; BP diastolic 52–78; PULSE 78–94; RESP 16–20; TEMP 98.2–98.9; O2SAT 92–95
--- NOTE | 2024-01-29 11:38 | DVHPN2 ---
Subjective Patient reports having neck pain, and poor oral intake secondary to difficulty swallowing. Patient also states that he does not want take any narcotics for pain control. Recommend he attempt taking Tylenol which was ordered. Reviewed: Care Plan, H&P, Labs, Medications Changes from previous H/P or p: No Changes General: Per HPI Objective Vitals Vital Signs Date Time Temp Pulse Resp B/P (MAP) Pulse Ox O2 Delivery O2 Flow Rate FiO2 01/29/24 09:00 98.7 89 16 119/78 (92) 95 98.7 01/28/24 20:00 Room Air* 0 21 Intake/Output Intake and Output 01/29/24 07:00 Intake Total 600 ml Output Total 2500 ml Balance -1900 ml Intake Oral 600 ml Output Urine Total 2500 ml General Appearance: Alert, Oriented X3, Cooperative, mild distress HEENT: Atraumatic, PERRLA, Other (And dry and intact to left side of neck) Neck: Other (Dressing dry and intact and now) Lungs: Clear to auscultation, Normal air movement Cardiovascular: Normal S1, Normal S2 Musculoskeletal: Normal sensory function, Normal motor function Extremities: No clubbing, No cyanosis Skin: Dry, Intact Psych/Mental Status: Mental status NL (Dressing dry and intact to neck), Mood NL Medications Current Medications Medications Dose Ordered Sig/Nic Route Start Time Stop Time Status Last Admin Dose Admin Dextrose/Sodium Chloride 1,000 ml @ 100 mls/hr Q10H IV 01/26/24 10:00 01/29/24 06:18 100 MLS/HR Ondansetron HCl 4 mg Q4HP PRN IV 01/26/24 10:00 Acetaminophen 650 mg Q6HP PRN PO 01/26/24 10:00 01/28/24 16:01 650 MG Acetaminophen/ Hydrocodone Bitart 1 tab Q6HP PRN PO 01/26/24 10:00 Morphine Sulfate 1 mg Q4HP PRN IV 01/26/24 10:00 Cyclobenzaprine HCl 10 mg TID PO 01/26/24 14:00 01/29/24 06:17 10 MG Docusate Sodium 100 mg BID PO 01/26/24 10:00 01/28/24 20:13 100 MG Nitroglycerin 0.4 mg Q5MINP PRN SL 01/26/24 10:00 Morphine Sulfate 2 mg Q30M PRN IV 01/26/24 10:00 Oxycodone HCl 10 mg ONCE PRN PO 01/26/24 10:45 Tamsulosin HCl 0.4 mg QPM PO 01/27/24 18:00 01/28/24 17:10 0.4 MG Enteral Nutritional Formula 240 ml BIDWM PO 01/27/24 18:00 01/28/24 18:28 240 ML Throat Lozenges 1 ivy Q2HP PRN MT 01/27/24 20:15 01/28/24 20:13 1 IVY Laboratory Results Laboratory Tests 01/26/24 14:32 Urinalysis Test 01/22/24 10:25 Urine Color Light-yellow (Yellow) Urine Clarity Clear (Clear) Urine pH 6.0 (5.0-9.0) Urine Specific [place] 1.026 (1.001-1.035) Urine Protein Negative (Negative) Urine Ketones Negative (Negative) Urine Blood Trace /uL (Negative) H Urine Nitrite Negative (Negative) Urine Bilirubin Negative (Negative) Urine Urobilinogen Normal mg/dL (Negative) Urine Leukocyte Esterase Negative /uL (Negative) Urine RBC 4 /hpf (0 - 3) Urine WBC 1 /hpf (0 - 3) Urine Squamous Epithelial Cells None seen /hpf (<5) Urine Bacteria None seen /hpf (None Seen) Urine Mucus Few (None Seen) Urine Glucose Normal mg/dL (Normal) Labs and/or images reviewed: Labs reviewed by me, Image(s) reviewed by me Assessment/Plan Assessment/Plan Impression: -cervical radiculopathy, status post cervical spinal surgery -probable chronic kidney disease stage IIIA Plan: -no events overnight. Patient continues to have poor oral intake. Reports he has been ambulating outside of the room. Has not had BM. -continue bowel regimen -DC IV fluid -recommend to get patient out of bed ambulate -change diet texture, add nutritional supplementation -pain management: Stop [place]. Add tramadol -DC planning per spinal surgery Total time spent with patient discussing and formulating plan of care: 35 minutes. This medical document was created using an electronic medical record system with [employer] dictation system. Although this document has been carefully reviewed, there may still be some phonetic and typographical errors. These areas are purely typographical due to imperfections of the software programs, and do not reflect any compromise in the patient's medical care. Plan discussed with: Patient, Other (RN) Date of Service: Jan 29, 2024 Billing Provider: DEMETRIO DE LA CRUZ NP Common Visit Codes: [id number] INP/OBS CARE(HIGH) DEMETRIO DE LA CRUZ NP Jan 29, 2024 11:38
[2024-01-29] MEDS: traMADol HCL 50 MG TAB PO PRN (15:01)
[2024-01-30 05:00] VITALS: BP 94/58; PULSE 69; RESP 18; TEMP 98.6; O2SAT 91
[2024-01-30 09:00] VITALS: BP 108/64; PULSE 67; RESP 17; TEMP 98.8; O2SAT 93
[2024-01-30 13:00] VITALS: BP 94/62; PULSE 81; RESP 16; TEMP 98.1; O2SAT 93
--- NOTE | 2024-01-30 13:46 | DVHPN2 ---
Reviewed: Care Plan, H&P, Labs, Medications Changes from previous H/P or p: No Changes General: Per HPI Objective Vitals Vital Signs Date Time Temp Pulse Resp B/P (MAP) Pulse Ox O2 Delivery O2 Flow Rate FiO2 01/30/24 09:00 98.8 67 17 108/64 (79) 93 98.8 01/30/24 08:00 Room Air* 0 21 Intake/Output Intake and Output 01/30/24 07:00 Intake Total 1000 ml Balance 1000 ml Intake Oral 1000 ml # Voids 13 General Appearance: Alert, Oriented X3, Cooperative, mild distress HEENT: Atraumatic, PERRLA, Other (And dry and intact to left side of neck) Neck: Other (Dressing dry and intact and now) Lungs: Clear to auscultation, Normal air movement Cardiovascular: Normal S1, Normal S2 Musculoskeletal: Normal sensory function, Normal motor function Extremities: No clubbing, No cyanosis Skin: Dry, Intact Psych/Mental Status: Mental status NL (Dressing dry and intact to neck), Mood NL Medications Current Medications Medications Dose Ordered Sig/Nic Route Start Time Stop Time Status Last Admin Dose Admin Ondansetron HCl 4 mg Q4HP PRN IV 01/26/24 10:00 Acetaminophen 650 mg Q6HP PRN PO 01/26/24 10:00 01/28/24 16:01 650 MG Morphine Sulfate 1 mg Q4HP PRN IV 01/26/24 10:00 Cyclobenzaprine HCl 10 mg TID PO 01/26/24 14:00 01/30/24 05:47 10 MG Docusate Sodium 100 mg BID PO 01/26/24 10:00 01/30/24 08:34 100 MG Nitroglycerin 0.4 mg Q5MINP PRN SL 01/26/24 10:00 Morphine Sulfate 2 mg Q30M PRN IV 01/26/24 10:00 Oxycodone HCl 10 mg ONCE PRN PO 01/26/24 10:45 Tamsulosin HCl 0.4 mg QPM PO 01/27/24 18:00 01/29/24 18:44 0.4 MG Enteral Nutritional Formula 240 ml BIDWM PO 01/27/24 18:00 01/30/24 08:36 240 ML Throat Lozenges 1 ivy Q2HP PRN MT 01/27/24 20:15 01/28/24 20:13 1 IVY Tramadol HCl 50 mg Q6HP PRN PO 01/29/24 11:45 01/29/24 21:58 50 MG Laboratory Results Laboratory Tests 01/26/24 14:32 Urinalysis Test 01/22/24 10:25 Urine Color Light-yellow (Yellow) Urine Clarity Clear (Clear) Urine pH 6.0 (5.0-9.0) Urine Specific [place] 1.026 (1.001-1.035) Urine Protein Negative (Negative) Urine Ketones Negative (Negative) Urine Blood Trace /uL (Negative) H Urine Nitrite Negative (Negative) Urine Bilirubin Negative (Negative) Urine Urobilinogen Normal mg/dL (Negative) Urine Leukocyte Esterase Negative /uL (Negative) Urine RBC 4 /hpf (0 - 3) Urine WBC 1 /hpf (0 - 3) Urine Squamous Epithelial Cells None seen /hpf (<5) Urine Bacteria None seen /hpf (None Seen) Urine Mucus Few (None Seen) Urine Glucose Normal mg/dL (Normal) Assessment/Plan Assessment/Plan -cervical radiculopathy, status post cervical spinal surgery -probable chronic kidney disease stage IIIA Plan: Continuing current management months. The patient can not tolerate mechanical soft diet. He said he is still hurt him when he swallowing I will change it to pureed diet to see if the patient can tolerated. I will add Cepabdulaziz martinez to see this help the patient The patient had request for nutrition support. I am going to order boost with meals Continuing with ambulation. Encouraged the patient to be out of bed And ambulate. Continuing with Colace in [place] Continuing with tramadol for pain control -DC planning per spinal surgery Plan discussed with: Patient Date of Service: Jan 30, 2024 Billing Provider: MANINDER BRUNSON MD Common Visit Codes: [id number] INP/OBS CARE(HIGH) MANINDER BRUNSON MD Jan 30, 2024 13:46
[2024-01-30 17:00] VITALS: BP 92/72; PULSE 83; RESP 15; TEMP 98.5; O2SAT 96
[2024-01-30] MEDS: THROAT LOZENGES(CEPASTAT) MT PRN (18:13)
[2024-01-30 20:00] VITALS: PULSE 83; RESP 16; O2SAT 99
[2024-01-30 21:00] VITALS: BP 103/70; PULSE 83; RESP 16; TEMP 98.8; O2SAT 99
[2024-01-31] VITALS (7 sets, daily range): BP systolic 80–109; BP diastolic 47–66; PULSE 74–93; RESP 16–18; TEMP 98–99.3; O2SAT 94–97
--- NOTE | 2024-01-31 08:33 | DVHPN2 ---
Subjective The patient is seen and examined at bedside. Still have very poor appetite. However pureed food is better for the patient. He said he able to swallow them even he does not like the texture Reviewed: Care Plan, H&P, Labs, Medications Changes from previous H/P or p: No Changes General: Per HPI Objective Vitals Vital Signs Date Time Temp Pulse Resp B/P (MAP) Pulse Ox O2 Delivery O2 Flow Rate FiO2 01/31/24 05:00 98.0 74 16 80/47 (58) 95 98.0 01/30/24 20:00 Room Air* 0 21 Intake/Output Intake and Output 01/31/24 07:00 Intake Total 1157 ml Balance 1157 ml Intake Oral 1157 ml # Voids 10 General Appearance: Alert, Oriented X3, Cooperative, mild distress HEENT: Atraumatic, PERRLA, Other (And dry and intact to left side of neck) Neck: Other (Dressing dry and intact and now) Lungs: Clear to auscultation, Normal air movement Cardiovascular: Normal S1, Normal S2 Musculoskeletal: Normal sensory function, Normal motor function Extremities: No clubbing, No cyanosis Skin: Dry, Intact Psych/Mental Status: Mental status NL (Dressing dry and intact to neck), Mood NL Medications Current Medications Medications Dose Ordered Sig/Nic Route Start Time Stop Time Status Last Admin Dose Admin Ondansetron HCl 4 mg Q4HP PRN IV 01/26/24 10:00 Acetaminophen 650 mg Q6HP PRN PO 01/26/24 10:00 01/28/24 16:01 650 MG Morphine Sulfate 1 mg Q4HP PRN IV 01/26/24 10:00 Cyclobenzaprine HCl 10 mg TID PO 01/26/24 14:00 01/31/24 06:03 10 MG Docusate Sodium 100 mg BID PO 01/26/24 10:00 01/30/24 22:14 100 MG Nitroglycerin 0.4 mg Q5MINP PRN SL 01/26/24 10:00 Morphine Sulfate 2 mg Q30M PRN IV 01/26/24 10:00 Oxycodone HCl 10 mg ONCE PRN PO 01/26/24 10:45 Tamsulosin HCl 0.4 mg QPM PO 01/27/24 18:00 01/30/24 18:11 0.4 MG Enteral Nutritional Formula 240 ml BIDWM PO 01/27/24 18:00 01/30/24 18:12 240 ML Throat Lozenges 1 ivy Q2HP PRN MT 01/27/24 20:15 01/28/24 20:13 1 IVY Tramadol HCl 50 mg Q6HP PRN PO 01/29/24 11:45 01/29/24 21:58 50 MG Throat Lozenges 1 ivy Q2HP PRN MT 01/30/24 14:45 01/30/24 18:13 1 IVY Laboratory Results Laboratory Tests 01/26/24 14:32 Urinalysis Test 01/22/24 10:25 Urine Color Light-yellow (Yellow) Urine Clarity Clear (Clear) Urine pH 6.0 (5.0-9.0) Urine Specific [place] 1.026 (1.001-1.035) Urine Protein Negative (Negative) Urine Ketones Negative (Negative) Urine Blood Trace /uL (Negative) H Urine Nitrite Negative (Negative) Urine Bilirubin Negative (Negative) Urine Urobilinogen Normal mg/dL (Negative) Urine Leukocyte Esterase Negative /uL (Negative) Urine RBC 4 /hpf (0 - 3) Urine WBC 1 /hpf (0 - 3) Urine Squamous Epithelial Cells None seen /hpf (<5) Urine Bacteria None seen /hpf (None Seen) Urine Mucus Few (None Seen) Urine Glucose Normal mg/dL (Normal) Labs and/or images reviewed: Labs reviewed by me Assessment/Plan Assessment/Plan -cervical radiculopathy, status post cervical spinal surgery -probable chronic kidney disease stage IIIA Plan: Continuing current management. Continuing pureed diet since the patient can tolerated it. Continuing Cepacod lorengez to see this help the patient with sore throat Continuing boost with meals Encouraged the patient to be out of bed and ambulate. Continuing with Colace in [place] Continuing with tramadol for pain control -DC planning per spinal surgery Plan discussed with: Patient My Orders Orders - MANINDER BRUNSON MD Procedure Category Date Status Time Throat Lozenges PHA 01/30/24 In Process (Cepastat Lozenges) 14:45 Regular Diet DIET 01/30/24 Transmitted Dinner Date of Service: Jan 31, 2024 Billing Provider: MANINDER BRUNSON MD Common Visit Codes: [id number] INP/OBS CARE(HIGH) MANINDER BRUNSON MD Jan 31, 2024 08:33
[2024-02-01] VITALS (7 sets, daily range): BP systolic 88–102; BP diastolic 52–79; PULSE 73–88; RESP 16–20; TEMP 97.6–98.6; O2SAT 94–99
--- NOTE | 2024-02-01 09:39 | DVHPN2 ---
Subjective Patient reports having neck pain, and poor oral intake secondary to difficulty swallowing. Patient also states that he does not want take any narcotics for pain control. Recommend he attempt taking Tylenol which was ordered. Reviewed: Care Plan, H&P, Labs, Medications Changes from previous H/P or p: No Changes General: Per HPI Objective Vitals Vital Signs Date Time Temp Pulse Resp B/P (MAP) Pulse Ox O2 Delivery O2 Flow Rate FiO2 02/01/24 08:10 76 16 97 Room Air* 0 21 02/01/24 05:00 98.3 88/59 (69) 98.3 Intake/Output Intake and Output 02/01/24 07:00 Intake Total 400 ml Output Total 800 ml Balance -400 ml Intake Oral 400 ml Output Urine Total 800 ml # Voids 6 General Appearance: Alert, Oriented X3, Cooperative, mild distress HEENT: Atraumatic, PERRLA, Other (And dry and intact to left side of neck) Neck: Other (Dressing dry and intact and now) Lungs: Clear to auscultation, Normal air movement Cardiovascular: Normal S1, Normal S2 Musculoskeletal: Normal sensory function, Normal motor function Extremities: No clubbing, No cyanosis Skin: Dry, Intact Psych/Mental Status: Mental status NL (Dressing dry and intact to neck), Mood NL Medications Current Medications Medications Dose Ordered Sig/Nic Route Start Time Stop Time Status Last Admin Dose Admin Ondansetron HCl 4 mg Q4HP PRN IV 01/26/24 10:00 Acetaminophen 650 mg Q6HP PRN PO 01/26/24 10:00 01/28/24 16:01 650 MG Morphine Sulfate 1 mg Q4HP PRN IV 01/26/24 10:00 Cyclobenzaprine HCl 10 mg TID PO 01/26/24 14:00 02/01/24 05:20 10 MG Docusate Sodium 100 mg BID PO 01/26/24 10:00 01/31/24 21:00 100 MG Nitroglycerin 0.4 mg Q5MINP PRN SL 01/26/24 10:00 Morphine Sulfate 2 mg Q30M PRN IV 01/26/24 10:00 Oxycodone HCl 10 mg ONCE PRN PO 01/26/24 10:45 Tamsulosin HCl 0.4 mg QPM PO 01/27/24 18:00 01/31/24 18:23 0.4 MG Enteral Nutritional Formula 240 ml BIDWM PO 01/27/24 18:00 02/01/24 08:24 240 ML Throat Lozenges 1 ivy Q2HP PRN MT 01/27/24 20:15 01/28/24 20:13 1 IVY Tramadol HCl 50 mg Q6HP PRN PO 01/29/24 11:45 01/29/24 21:58 50 MG Throat Lozenges 1 ivy Q2HP PRN MT 01/30/24 14:45 01/30/24 18:13 1 IVY Laboratory Results Laboratory Tests 01/26/24 14:32 Urinalysis Test 01/22/24 10:25 Urine Color Light-yellow (Yellow) Urine Clarity Clear (Clear) Urine pH 6.0 (5.0-9.0) Urine Specific [place] 1.026 (1.001-1.035) Urine Protein Negative (Negative) Urine Ketones Negative (Negative) Urine Blood Trace /uL (Negative) H Urine Nitrite Negative (Negative) Urine Bilirubin Negative (Negative) Urine Urobilinogen Normal mg/dL (Negative) Urine Leukocyte Esterase Negative /uL (Negative) Urine RBC 4 /hpf (0 - 3) Urine WBC 1 /hpf (0 - 3) Urine Squamous Epithelial Cells None seen /hpf (<5) Urine Bacteria None seen /hpf (None Seen) Urine Mucus Few (None Seen) Urine Glucose Normal mg/dL (Normal) Labs and/or images reviewed: Labs reviewed by me, Image(s) reviewed by me Assessment/Plan Assessment/Plan Impression: -cervical radiculopathy, status post cervical spinal surgery -probable chronic kidney disease stage IIIA Plan: -patient has been ambulating. P.o. intake has improved. -continue bowel regimen -DC IV fluid -recommend to get patient out of bed ambulate -change diet texture, add nutritional supplementation -pain management: Stop [place]. Add tramadol -DC planning per spinal surgery -cleared for discharge from medical standpoint. We will sign off. Total time spent with patient discussing and formulating plan of care: 35 minutes. This medical document was created using an electronic medical record system with [employer] dictation system. Although this document has been carefully reviewed, there may still be some phonetic and typographical errors. These areas are purely typographical due to imperfections of the software programs, and do not reflect any compromise in the patient's medical care. Plan discussed with: Patient, Other (RN) Date of Service: Feb 01, 2024 Billing Provider: DEMETRIO DE LA CRUZ NP Common Visit Codes: [id number] INP/OBS CARE(MOD) DEMETRIO DE LA CRUZ NP Feb 01, 2024 09:39
[2024-02-02 01:00] VITALS: BP_SYST 84; BP_SYST 90; BP_DIAS 52; BP_DIAS 55; PULSE 48; PULSE 71; RESP 18; TEMP 97.7; O2SAT 100; O2SAT 93
[2024-02-02 05:00] VITALS: BP 96/64; PULSE 66; RESP 19; TEMP 97.9; O2SAT 98
[2024-02-02 09:50] VITALS: BP 106/68; PULSE 89; RESP 18; TEMP 98.5; O2SAT 96
[2024-02-02 13:00] VITALS: BP 133/70; PULSE 80; RESP 18; TEMP 98.4; O2SAT 96
[2024-02-02 15:02] VITALS: BP 124/76; PULSE 62; RESP 16; TEMP 98.5; O2SAT 98
== END 2024-02-02 16:50 | disposition home or self-care (01) | DRG 472 ==
LOC: SUR 06:24 → TELE 10:00 → TELE-EAST 15:55 → EAST 01-30 01:09 → WEST WING 01-30 20:48
PROVIDERS: ADMIT Orthopaedic Surgery; ATTEND Nurse Practitioner Acute Care
PROC: 01N10ZZ Release Cervical Nerve, Open Approach (ICD-10-PCS; 2024-01-26)
PROC: 00NW0ZZ Release Cervical Spinal Cord, Open Approach (ICD-10-PCS; 2024-01-26)
PROC: 0RB30ZZ Excision of Cervical Vertebral Disc, Open Approach (ICD-10-PCS; 2024-01-26)
PROC: 0RG20A0 Fusion of 2 or more Cervical Vertebral Joints with Interbody Fusion Device, Anterior Approach, Anterior Column, Open Approach (ICD-10-PCS; principal; 2024-01-26 07:23)
DX: M48.02 Spinal stenosis, cervical region (principal); M50.01 Cervical disc disorder with myelopathy, high cervical region; M50.021 Cervical disc disorder at C4-C5 level with myelopathy; M50.022 Cervical disc disorder at C5-C6 level with myelopathy; M50.023 Cervical disc disorder at C6-C7 level with myelopathy; N18.31 Chronic kidney disease, stage 3a; M50.11 Cervical disc disorder with radiculopathy, high cervical region; M50.121 Cervical disc disorder at C4-C5 level with radiculopathy; M50.122 Cervical disc disorder at C5-C6 level with radiculopathy; M50.123 Cervical disc disorder at C6-C7 level with radiculopathy
CPT/HCPCS: 36415; 70450; 72040; 76000; 80048; 80053; 81001; 83735; 85025; 85610; 85730; 86850; 86900; 86901; 97110; 97116; 97162; G0378; J0690; J1100; J1956; J2003; J2405; J2704; J7042

== ENCOUNTER 2024-04-26 08:28 | Inpatient (IN) | payer BC ==
[2024-04-22 11:03] LABS: Urine Bacteria None Seen /hpf (None Seen)
[2024-04-22 11:22] LABS: Eosinophils # (auto) 0.1 10 ^3/uL (0-0.8); Hemoglobin 14.4 g/dL (13.5-17.5); Monocytes # (auto) 0.3 10 ^3/uL (0-1.3); Nucleated Red Blood Cells % 0.1 %; Red Cell Distribution Width 15.6 % (11.8-14.3)
[2024-04-22 11:25] LABS: Basophils # (auto) 0.1 10 ^3/uL (0-0.2); Basophils % (auto) 1.6 % (0.0-2.0); Eosinophils % (auto) 2.6 % (0.0-7.0); Hematocrit 45.3 % (41.0-53.0); Lymphocytes # (auto) 1.6 10 ^3/uL (0.4-5.4); Lymphocytes % (auto) 30.9 % (10.0-50.0); Mean Corpuscular Hemoglobin 25.2 pg (28.0-32.0); Mean Corpuscular Hgb Conc. 31.9 g/dL (32.0-36.0); Mean Corpuscular Volume 79.1 fL (80.0-100.0); Monocytes % (auto) 6.1 % (0.0-12.0); Neutrophils % (auto) 58.8 % (37.0-80.0); Platelet Count (auto) 274 10^3/uL (140-450); Red Blood Cells 5.73 10^6/uL (4.5-5.90); White Blood Cell 5.1 10^3/uL (4.4-10.8)
[2024-04-22 11:34] LABS: INR 0.96 (0.9-1.15); Partial Thromboplastin Time 27.3 SEC (24.5-34.5); Prothrombin Time 10.2 sec (9.3-11.8)
[2024-04-22 11:38] LABS: Alanine Aminotransferase 18 U/L (7-40); Anion Gap 7 (5-15); Aspartate Aminotransferase 17 U/L (13-40); BUN/Creatinine Ratio 12.4 (10.0-20.0); Blood Urea Nitrogen 18 mg/dL (9-23); Calcium 10.2 mg/dL (8.7-10.4); Carbon Dioxide 28 mmol/L (20-31); Glucose 86 mg/dL (74-106); Potassium 4.1 mmol/L (3.5-5.1); Sodium 142 mmol/L (136-145)
[2024-04-22 11:39] LABS: Bilirubin, Total 0.3 mg/dL (0.2-1.0); Total Protein 7.5 g/dL (5.7-8.2)
[2024-04-22 11:56] LABS: Albumin 4.8 g/dL (3.2-4.8); Alkaline Phosphatase 156 U/L (46-116); Chloride 107 mmol/L (98-107)
[2024-04-22 12:00] LABS: Urine Blood Negative /uL (Negative); Urine Clarity Clear (Clear); Urine Color Light-Yellow (Yellow); Urine Protein, UAD Negative (Negative); Urine Specific Gravity 1.019 (1.001-1.035); Urine Squamous Epithelial Cell None Seen /hpf (<5); Urine Urobilinogen Normal (Negative); Urine WBC < 1 /HPF (0-3); Urine pH 5.5 (5.0-9.0)
[~2024-04-26] VITALS: Ht 163.8 cm; Wt 73.6 kg
[~2024-04-26 08:28] MED LIST: LATA0.008 EACHEYE; TAMS0.4C39 PO
[2024-04-26] MEDS: ceFAZolin 2 GM/D5W100ml 100 ML IV ONE (09:09)
--- NOTE | 2024-04-26 09:30 | DVHHP2 ---
Admitting Diagnosis: lumbar spinal stenosis/degenerative disc disease with severe neurogenic claudication History of Present Illness Home Meds Reported Medications Tamsulosin Hcl (Tamsulosin Hcl) Unknown Strength Cap, PO QPM for 30 Days, MG 04/22/24 Latanoprost (LATANOPROST) 0.005 % Di, 1 DROP EACHEYE 01/26/24 Timing/Duration of Back Pain: Getting worse, > 1 Month Quality of Back Pain: Aching, Burning, Cramping, Dullness, Sharpness Back Pain Location: Lumbar spine Back Pain Radiation: Buttocks, Thigh area, Feet, Lower legs Method of Injury/Prior Factors: Unknown Modifying Factors for Back Nathaly: None Associated Symptoms of Back Pa: Sensory loss, Motor loss Past Medical History Patient Family History: Diabetes mellitus G8 MOTHER Review of Systems Constitutional: No symptom reported Ears, Nose, & Throat: No symptom reported Eyes: No symptom reported Pulmonary/Respiratory: No symptom reported Cardiovascular: No symptom reported Gastrointestinal: No symptom reported Genitourinary: No symptom reported Musculoskeletal: Back pain, Leg pain Skin: No symptom reported Psychiatric: No symptom reported Endocrine: No symptom reported Hemotologic/Lymphatic: No symptom reported H&P Exam General Appeara: Well developed, Well nourished, Normal Appearance Head Exam: Normal inspection Neck Exam: Normal inspection, Non-tender, Normal alignment Eye Exam: bilateral eye Normal inspection, bilateral eye PERRL, bilateral eye EOMI Ear Exam: bilateral ear Auricle normal, bilateral ear Canal normal, bilateral ear TM normal Nasal Exam: Normal inspection Mouth: Normal Inspection Pulmonary/Respiratory: Normal inspection, Normal breath sounds, Chest non- tender, Lungs clear Cardiovascular/Chest: Normal inspection, Regular rate, Normal Rhythm Abdominal Exam: Normal bowel sounds, Soft, No tenderness, No hepatospenomegaly, No masses Rectal Exam: Deferred Back Exam: Decreased range of motion, Muscle spasm, Vertebral tenderness Pelvic Exam: Not done Male Genital Exam: Not done Shoulder Exam: Normal inspection, Non-tender, Normal ROM Elbow/Forearm Exam: Normal inspection, Non-tender, Normal ROM Wrist Exam: Normal inspection, Non-tender, Normal ROM Hand Exam: Normal inspection, Non-tender, Normal ROM Hip exam: Normal inspection, Non-tender, Normal range of motion Legs: bilateral leg non-tender, bilateral leg normal inspection, bilateral leg normal range of motion, bilateral leg no evidence of injury Knees: bilateral knee non-tender, bilateral knee normal inspection, bilateral knee normal range of motion, bilateral knee no evidence of injury Ankle Exam: bilateral ankle Normal inspection, bilateral ankle Non-tender, bilateral ankle Normal range of motion, bilateral ankle No evidence of injury Foot: bilateral foot non-tender, bilateral foot normal inspection, bilateral foot normal range of motion, bilateral foot no evidence of injury Tendon/ Neuro: Motor deficit, Sensory deficit [employer] Exam: Normal hearing, Normal speech, PERRL Motor/Sensory: Weak motor strength RLE, Weak motor strength LLE Deep Tendon Ref: All intact Neuro/Mental St: Alert, Oriented Appearance: Appropriate appearance, Appropriate insight Eye contact/ Speech: Cooperative, Good eye contact, Normal speech Coordination/Gait: Abnormal gait Skin Exam: Normal inspection, Normal color, Warm/dry Lymphatic: Normal inspection Labs/Xrays Labs Test 04/22/24 10:57 Range/Units White Blood Count 5.1 4.4-10.8 10^3/uL Red Blood Count 5.73 4.5-5.90 10^6/uL Hemoglobin 14.4 13.5-17.5 g/dL Hematocrit 45.3 41.0-53.0 % Mean Corpuscular Volume 79.1 L 80.0-100.0 fL Mean Corpuscular Hemoglobin 25.2 L 28.0-32.0 pg Mean Corpuscular Hemoglobin Concent 31.9 L 32.0-36.0 g/dL Red Cell Distribution Width 15.6 H 11.8-14.3 % Platelet Count 274 140-450 10^3/uL Mean Platelet Volume 7.4 6.9-10.8 fL Neutrophils (%) (Auto) 58.8 37.0-80.0 % Lymphocytes (%) (Auto) 30.9 10.0-50.0 % Monocytes (%) (Auto) 6.1 0.0-12.0 % Eosinophils (%) (Auto) 2.6 0.0-7.0 % Basophils (%) (Auto) 1.6 0.0-2.0 % Neutrophils # (Auto) 3.0 1.6-8.6 10 ^3/uL Lymphocytes # (Auto) 1.6 0.4-5.4 10 ^3/uL Monocytes # (Auto) 0.3 0-1.3 10 ^3/uL Eosinophils # (Auto) 0.1 0-0.8 10 ^3/uL Basophils # (Auto) 0.1 0-0.2 10 ^3/uL Nucleated Red Blood Cells 0.1 % Prothrombin Time 10.2 9.3-11.8 sec Prothrombin Time INR 0.96 0.9-1.15 Activated Partial Thromboplast Time 27.3 24.5-34.5 SEC Urine Color Light-yellow Yellow Urine Clarity Clear Clear Urine pH 5.5 5.0-9.0 Urine Specific [place] 1.019 1.001-1.035 Urine Protein Negative Negative Urine Ketones Negative Negative Urine Blood Negative Negative /uL Urine Nitrite Negative Negative Urine Bilirubin Negative Negative Urine Urobilinogen Normal Negative mg/dL Urine Leukocyte Esterase Negative Negative /uL Urine RBC 1 0 - 3 /hpf Urine Microscopic WBC < 1 0-3 /HPF Urine Squamous Epithelial Cells None seen <5 /hpf Urine Bacteria None seen None Seen /hpf Urine Glucose Normal Normal mg/dL Sodium Level 142 136-145 mmol/L Potassium Level 4.1 3.5-5.1 mmol/L Chloride Level 107 98-107 mmol/L Carbon Dioxide Level 28 20-31 mmol/L Anion Gap 7 5-15 Blood Urea Nitrogen 18 9-23 mg/dL Creatinine 1.45 H 0.700-1.30 mg/dL Glomerular Filtration Rate Calc 54 >90 mL/min BUN/Creatinine Ratio 12.4 10.0-20.0 Serum Glucose 86 74-106 mg/dL Calcium Level 10.2 8.7-10.4 mg/dL Total Bilirubin 0.3 0.2-1.0 mg/dL Aspartate Amino Transferase (AST) 17 13-40 U/L Alanine Aminotransferase (ALT) 18 7-40 U/L Alkaline Phosphatase 156 H 46-116 U/L Total Protein 7.5 5.7-8.2 g/dL Albumin 4.8 3.2-4.8 g/dL Assessment/Plan Primary Diagnosis lumbar spinal stenosis with severe neurogenic claudication Admitting Diagnosis: same as above Plan admit for elective lumbar spine surgery Plan discussed with: Patient MANE MOSELEY MD Apr 26, 2024 09:30
[2024-04-26] MEDS: TRANEXAMIC ACID 20 ML ONE (11:50)
[2024-04-26] MEDS: CIPROFLOXACIN 400MG/200ML 200 ML IV ONE (12:16)
[2024-04-26] MEDS ORDERED: fentaNYL CITRATE 5 ML ONE (12:49)
[2024-04-26] MEDS ORDERED: KETAMINE 50mg/ML 1ml syringe ONE (12:49)
[2024-04-26] MEDS ORDERED: fentaNYL CITRATE 100 MCG/2 ML VL ONE (12:49)
[2024-04-26] MEDS ORDERED: MIDAZOLAM HCL 2MG/2ML 2ml VIAL (1mg/ml) ONE (12:49)
[2024-04-26] MEDS ORDERED: DexAMETHasone SOD PHOS 10MG/1ML VIAL INJ ONE (12:50)
[2024-04-26] MEDS ORDERED: ePHEDrine SULFATE 50 MG/ML AMP ONE (12:50)
[2024-04-26] MEDS ORDERED: LIDOCAINE 2% (LOCAL ANESTH.) PF 5ml SDV ONE (12:50)
[2024-04-26] MEDS ORDERED: PROPOFOL 10 MG/ML 20 ML IV ONE ×2 (12:50→16:13)
[2024-04-26] MEDS ORDERED: GLYCOPYRROLATE 0.2 MG/ML 1ML VIAL ONE (12:50)
[2024-04-26] MEDS ORDERED: ONDANSETRON HCL 4 MG/2 ML VIAL ONE (12:50)
[2024-04-26] MEDS ORDERED: HYDROmorphone HCL 2 MG/ML VL/or syr ONE (12:52)
[2024-04-26] MEDS: LIDOCAINE W/ EPINEPHRINE 1% 20ML VIAL ONE (13:06)
[2024-04-26] MEDS ORDERED: SUGAMMADEX 200mg/2ml Vial (100MG/ML) IV ONE (16:32)
[2024-04-26] MEDS ORDERED: D5W/SOD CHLO 0.9% 1,000 ML IV SCH (16:45)
[2024-04-26] MEDS ORDERED: HYDROcodone-ACET 10/325MG TAB PO PRN (16:45)
[2024-04-26] MEDS ORDERED: ONDANSETRON HCL 4 MG/2 ML VIAL IV PRN ×2 (16:45)
[2024-04-26] MEDS ORDERED: MORPHINE SULFATE INJ 2 MG/ml SYRG IV PRN ×3 (16:45)
[2024-04-26] MEDS ORDERED: NITROGLYCERIN 0.4 MG SL TAB SL PRN ×2 (16:45)
[2024-04-26] MEDS ORDERED: ACETAMINOPHEN 325 MG TAB PO PRN (16:45)
[2024-04-26] MEDS: D5W/SOD CHLO 0.9% 1,000 ML IV SCH (16:45)
--- NOTE | 2024-04-26 17:36 | DVH ---
EXAM: XY LUMBAR SPINE 4+ VIEW, XY C ARM FLUOROSCOPY UP TO 60MIN HISTORY: LUMBAR DISCECTOMY/FUSION TECHNIQUE: Intraoperative radiographs of the lumbar spine were obtained. FLUOROSCOPY TIME: 200.3 seconds FLUOROSCOPY IMAGES: 13 TOTAL DOSE: 82.55 mGy COMPARISON: XY LUMBAR SPINE 3 VIEW on DOS: 09/04/23 FINDINGS/IMPRESSION: Refer to intraoperative report for further evaluation.
[2024-04-26 17:50] VITALS: PULSE 81; RESP 17; O2SAT 100
[2024-04-26] MEDS ORDERED: HYDROmorphone HCL 2 MG/ML VL/or syr IV PRN (18:00)
[2024-04-26] MEDS: ONDANSETRON HCL 4 MG/2 ML VIAL IV ONE (18:00)
[2024-04-26 19:30] VITALS: BP 98/49; PULSE 81; RESP 16; TEMP 97.5; O2SAT 96
[2024-04-26 19:52] VITALS: BP 98/49; PULSE 87; RESP 18; TEMP 97.5; O2SAT 96
[2024-04-26 20:00] VITALS: PULSE 87; PULSE 90; RESP 18; O2SAT 96
[2024-04-26 21:00] VITALS: BP 96/48; PULSE 73; RESP 16; TEMP 97.1; O2SAT 96
[2024-04-26] MEDS: ceFAZolin 1GM/50ML 50 ML IV SCH (21:06)
[2024-04-26] MEDS: CYCLOBENZAPRINE HCL 10 MG TAB PO SCH (21:07)
[2024-04-26] MEDS: DOCUSATE SOD 100 MG CAP PO SCH (21:07)
[2024-04-26] MEDS ORDERED: DOCUSATE SOD 100 MG CAP PO SCH (22:00)
[2024-04-26] MEDS ORDERED: CYCLOBENZAPRINE HCL 10 MG TAB PO SCH (22:00)
[2024-04-26] MEDS ORDERED: ceFAZolin 1GM/50ML 50 ML IV SCH (22:00)
[2024-04-27] VITALS (7 sets, daily range): BP systolic 84–95; BP diastolic 36–56; PULSE 70–106; RESP 17–18; TEMP 97.8–98.8; O2SAT 91–97
[2024-04-27] MEDS: ACETAMINOPHEN 325 MG TAB PO PRN (01:07)
[2024-04-27] MEDS: D5W/SOD CHLO 0.9% 500 ML IV ONE (05:54)
[2024-04-27 08:17] LABS: Eosinophils # (auto) 0 10 ^3/uL (0-0.8); Hemoglobin 9.3 g/dL (13.5-17.5); Lymphocytes # (auto) 0.5 10 ^3/uL (0.4-5.4); Monocytes # (auto) 0.5 10 ^3/uL (0-1.3)
[2024-04-27 08:19] LABS: Basophils # (auto) 0 10 ^3/uL (0-0.2); Basophils % (auto) 0.2 % (0.0-2.0); Eosinophils % (auto) 0.1 % (0.0-7.0); Hematocrit 29.5 % (41.0-53.0); Lymphocytes % (auto) 5.1 % (10.0-50.0); Mean Corpuscular Hemoglobin 25.2 pg (28.0-32.0); Mean Corpuscular Hgb Conc. 31.5 g/dL (32.0-36.0); Mean Corpuscular Volume 80.1 fL (80.0-100.0); Neutrophils # (auto) 8.4 10 ^3/uL (1.6-8.6); Neutrophils % (auto) 89.6 % (37.0-80.0); Platelet Count (auto) 169 10^3/uL (140-450); Red Blood Cells 3.68 10^6/uL (4.5-5.90); Red Cell Distribution Width 15.9 % (11.8-14.3); White Blood Cell 9.4 10^3/uL (4.4-10.8)
--- NOTE | 2024-04-27 10:31 | DVHPN2 ---
Progress Note - Surgical Date Seen: Apr 27, 2024 Post op day Post op day: 1 Subjective Patient reports: No new complaints, Feels better Review of Systems: HEENT:Normal, CVS:Normal, RESPIRATORY:Normal, GI:Normal, :Normal, MSK:Normal, NEURO:Normal (Verbalized improvement in his preoperative symptoms ) Objective Vital signs Vital Sign Date Time Temp Pulse Resp B/P (MAP) Pulse Ox O2 Delivery O2 Flow Rate FiO2 04/27/24 05:00 97.8 70 17 84/36 (52) 96 97.8 04/26/24 20:00 Room Air* 0 21 Total Intake and Output 04/26/24 04/26/24 04/27/24 15:00 23:00 07:00 Intake Total 1025 ml 50 ml 300 ml Output Total 850 ml Balance 1025 ml 50 ml -550 ml Medications Current Medications Medications Dose Ordered Sig/Nic Route Start Time Stop Time Status Last Admin Dose Admin Cyclobenzaprine HCl 10 mg TID PO 04/26/24 22:00 UNV Cefazolin Sodium 50 ml @ 100 mls/hr Q8HR IV 04/26/24 22:00 04/28/24 14:29 UNV Dextrose/Sodium Chloride 1,000 ml @ 100 mls/hr Q10H IV 04/26/24 16:45 04/26/24 16:45 100 MLS/HR Ondansetron HCl 4 mg Q4HP PRN IV 04/26/24 16:45 Acetaminophen 650 mg Q6HP PRN PO 04/26/24 16:45 04/27/24 01:07 650 MG Acetaminophen/ Hydrocodone Bitart 1 tab Q6HP PRN PO 04/26/24 16:45 Morphine Sulfate 1 mg Q4HP PRN IV 04/26/24 16:45 Cyclobenzaprine HCl 10 mg TID PO 04/26/24 22:00 04/27/24 05:22 10 MG Docusate Sodium 100 mg BID PO 04/26/24 22:00 04/27/24 09:54 100 MG Cefazolin Sodium 50 ml @ 100 mls/hr Q8HR IV 04/26/24 22:00 04/28/24 14:29 04/27/24 05:28 100 MLS/HR Nitroglycerin 0.4 mg Q5MINP PRN SL 04/26/24 16:45 Morphine Sulfate 2 mg Q30M PRN IV 04/26/24 16:45 Laboratory Laboratory Tests 04/27/24 06:48 Test 04/27/24 06:48 Range/Units Serum Glucose 121 H 74-106 mg/dL Examination: GENERAL:Normal, HEENT:Normal, NECK:Normal, LUNGS:Normal, CVS:Normal (Patient did have a bout of hypotension yesterday hospitalist contacted IV fluid bolus given patient responsive), ABDOMEN:Normal, MSK:Normal (Verbalize the expected postoperative pain), SKIN:Normal (Delicia dressing intact drain 1. With 33 cc of output since surgery, drain 2. With 28 cc of output since surgery we will leave the drains in as the patient has not gotten up with physical therapy yet), NEURO:Normal (Improvement in preoperative symptoms back pain), :Normal Problem List/Assessment/Plan Problems: (1) Lumbar radiculopathy (2) Lumbar strain (3) Postoperative pain after spinal surgery Assessment and Plan Patient is progressing well, we will leave drains in place because the patient has not ambulated with physical therapy. Patient understands the need for pain control and is agreeable to take his medications as ordered Dressing is in place and functioning seal is intact power source is working Patient is tolerating a diet and fluids POD # 1 Dx: Lumbar Stenosis with neurogenic claudication -Disposition: -Pending -Discharge RX: Pending -Follow up appointment: with Dr Aguilera on pending [phone] [id number] [facility] [address] [place] [address] -Pain: - IV pain meds post op day 1, with PO supplementation, goal is to progress weaning off IV medications and control pain with PO only. morphine 2mg q 4 hours (PAIN 7-10) - P.O. analgesics:Tylenol 650MG (PAIN 1-3) [place] 10/325 mg (PAIN 4-6) - Muscle relaxers scheduled administration. This is a beneficial medications for the incisional pain as it is mostly related to muscle spasms. Flexeril 10 mg TID - Cepacol throat lozenges as needed for sore throat -Antibiotics Operative recommendations: -Postoperative dose:-Post operative antibiotics cefazolin 1 g IV piggyback every 8 hours x 48 hours total of 6 doses -DVT PPX: -Hold all chemical DVT/ blood thinners for 14 days postoperatively -use mechanical DVT PPX such as SCD's, ambulation -Activity: -Pending PT evaluation and patients progression -Sit at side of bed for meals -Goal: Ambulate independently and safely (may use assistive devices if needed) -Medical Therapy goals: -Afebrile- Patient may develop a expected post operative fever by day 2-3, this may not be accompanied with a elevation in WBC. if fever develops: Acetaminophen for fever. Albuterol nebulizer Tx every 12 hours for 24 hours to facilitate adequate lung expansion and prevent development of atelectasis. -Euglycemic: bloods sugars under 130mmol/L for optimal healing -Normotensive: Avoid events of hypertension. This helps to keep post operative healing intact and avoids destabilization of beneficial hemostatic coagulation. -Lumbar: -If patient is comfortable encouraged the patient to lay on their side to facilitate wound healing -Drains: -Hemovac drains: These will be to full compression unless otherwise ordered. Please record and document output AND characteristic of fluid present independently EVERY 6 hours more often as needed. if there in no output indicate this by documenting 0ml. If output is greater than 100 ml in one hour of rosy blood call provider. These drains will be removed once the drainage is at a acceptable level (generally less than 100ml in 24 hours) -Delicia dressing: This will stay in place and will be removed at the patients follow up visit. Nursing is to assess the seal and power source. The seal should be intact and the power source should have a green flashing light indicating it is functioning well. Batteries can last up to 14 days. If a leak develops the dressing edges can be reinforced with a Tegaderm dressing to reestablish intact seal. The Delicia dressing is NOT a wound vac. This does not get changed, it does not need home health management. -Record output independently, drain 1. Is a deep drain and drain 2. Is a superficial drain. Wound drainage is described by type, color, amount, and odor. Drainage can be 1 Serous: Clear and thin, may be present in healing healthy wound. 2 Serosanguineous containing blood may also be present and healthy healing wound 3. Sanguinous primarily blood 4. Purulent this is thick, white, and pus like. It may be indicated to give of a infection and should constitute a call to the provider immediately with the plan that the sample should be cultured. -Riley: discontinued in OR -Dressings Take care not to disrupt the DELICIA dressing seal. If there is a break in the seal it can be trouble shot with a Tegaderm dressing. -Dressing to Hemovac drains may be changed once the drains have been removed by the provider. -Bowel management: -Colace 100mg bid -Diet: -Clear liquid diet and advance as patient tolerates within dietary limitations ( example: diabetic, Cardiac) -Incentive Spirometer: -10 x hour while awake, RN please educate and observe repeat demonstration, have IS at bedside POD #1 -X-rays: - none indicated at this time -Consults: -Physical Therapy evaluation, treatment recommendations, and discharge recommendations Call with questions Margo Mcleod ACNP- Orthopaedic Spine Surgery nurse practitioner For Dr Tierney Aguilera Patient was examined, chart reviewed, labs evaluated, and diagnostic studies and findings analyzed. Case was discussed with Dr. Michael Aguilera who formulated the plan of care. This medical document was created using an electronic medical record system with [employer] dictation system. Although this document has been carefully reviewed, there might still be some phonetic and typographical errors. These areas are purely typographical due to imperfections of the software programs, and do not reflect any compromise in the patient's medical care. My Orders My Orders Orders - CAROLINE MCLEOD NP Procedure Category Date Status Time * Urology Consult CONS 04/26/24 Transmitted 17:54 Plan discussed with Plan discussed with: Patient Visit Coding Surgery Date of Service if different f: Apr 27, 2024 Billing Provider: CAROLINE MCLEOD NP Surgery Visit Codes: NOT BILLABLE CAROLINE MCLEOD NP Apr 27, 2024 10:31
--- NOTE | 2024-04-27 10:59 | DVH ---
INDICATION: BPH TECHNIQUE: Multiple real-time sonographic images of the kidneys and bladder were obtained. COMPARISON: None FINDINGS: The right kidney measures 9 cm in length, which is normal in size. There is normal echogenicity of th e right kidney. No hydronephrosis. 2 cm right renal cyst. The left kidney measures 9 cm in length, which is normal in size. There is normal echogenicity of the left kidney. No hydronephrosis. 3 left renal cyst No large intraluminal masses are seen in the bladder. IMPRESSION: 1. Normal sonographic appearance of the kidneys. No hydronephrosis.
--- NOTE | 2024-04-27 11:02 | DVHINCON2 ---
Date of service: Apr 27, 2024 Referring Physician Wilyl Reason for Consultation BPH History of Present Illness Patient was undergoing spinal surgery yesterday and apparenlty had difficulty with Riley catheter placement and a 16 F Coude tip catheter was used. Urology consultation was requested for BPH. Patient gives history of having slow urinary stream and nocturia. He was taking tamsulosin with some improvement for the past nine months. Past Medical History BPH Past Surgical History Spinal surgery Family History: Diabetes mellitus G8 MOTHER Allergies: Coded Allergies: NO KNOWN ALLERGIES (Unverified , 01/22/24) Home Meds Reported Medications Tamsulosin Hcl (Tamsulosin Hcl) Unknown Strength Cap, PO QPM for 30 Days, MG 04/22/24 Latanoprost (LATANOPROST) 0.005 % Di, 1 DROP EACHEYE 01/26/24 Current Medications Current Medications Medications (Trade) Dose Ordered Sig/Nic Route PRN Reason Start Time Stop Time Status Last Admin Dextrose/Sodium Chloride 1,000 ml @ 100 mls/hr Q10H IV 04/26/24 16:45 04/26/24 16:57 DC Ondansetron HCl (Zofran) 4 mg Q4HP PRN IV NAUSEA / VOMITING 04/26/24 16:45 04/26/24 17:03 DC Acetaminophen (Tylenol Tablet) 650 mg Q6HP PRN PO MILD PAIN (1-3 PAIN SCALE) 04/26/24 16:45 04/26/24 16:59 DC Acetaminophen/ Hydrocodone Bitart ([place] 10/325MG Tab) 1 tab Q6HP PRN PO MODERATE PAIN (4-6 PAIN SCALE) 04/26/24 16:45 04/26/24 17:00 DC Morphine Sulfate 1 mg Q4HP PRN IV SEVERE PAIN (7-10 PAIN SCALE) 04/26/24 16:45 04/26/24 17:04 DC Cyclobenzaprine HCl (Flexeril Tablet) 10 mg TID PO 04/26/24 22:00 UNV Docusate Sodium (Colace Capsule) 100 mg BID PO 04/26/24 22:00 04/26/24 16:59 DC Cefazolin Sodium 50 ml @ 100 mls/hr Q8HR IV 04/26/24 22:00 04/28/24 14:29 UNV Nitroglycerin (Ntrostat Sublingual) 0.4 mg Q5MINP PRN SL FOR CHEST PAIN 04/26/24 16:45 04/26/24 17:04 DC Morphine Sulfate 2 mg Q30M PRN IV FOR CHEST PAIN 04/26/24 16:45 04/26/24 17:02 DC Dextrose/Sodium Chloride 1,000 ml @ 100 mls/hr Q10H IV 04/26/24 16:45 04/26/24 16:45 Ondansetron HCl (Zofran) 4 mg Q4HP PRN IV NAUSEA / VOMITING 04/26/24 16:45 Acetaminophen (Tylenol Tablet) 650 mg Q6HP PRN PO MILD PAIN (1-3 PAIN SCALE) 04/26/24 16:45 04/27/24 01:07 Acetaminophen/ Hydrocodone Bitart ([place] 10/325MG Tab) 1 tab Q6HP PRN PO MODERATE PAIN (4-6 PAIN SCALE) 04/26/24 16:45 Morphine Sulfate 1 mg Q4HP PRN IV SEVERE PAIN (7-10 PAIN SCALE) 04/26/24 16:45 Cyclobenzaprine HCl (Flexeril Tablet) 10 mg TID PO 04/26/24 22:00 04/27/24 05:22 Docusate Sodium (Colace Capsule) 100 mg BID PO 04/26/24 22:00 04/27/24 09:54 Cefazolin Sodium 50 ml @ 100 mls/hr Q8HR IV 04/26/24 22:00 04/28/24 14:29 04/27/24 05:28 Nitroglycerin (Ntrostat Sublingual) 0.4 mg Q5MINP PRN SL FOR CHEST PAIN 04/26/24 16:45 Morphine Sulfate 2 mg Q30M PRN IV FOR CHEST PAIN 04/26/24 16:45 Hydromorphone HCl (Dilaudid Injection) 0.5 mg Q10M PRN IV SEVERE PAIN (7-10 PAIN SCALE) 04/26/24 18:00 04/26/24 18:53 DC Review of Systems Constitutional: No symptom reported Ears, Nose, & Throat: No symptom reported Eyes: No symptom reported Pulmonary/Respiratory: No symptom reported Cardiovascular: No symptom reported Gastrointestinal: No symptom reported Genitourinary: Nocturia and slow urinary stream Musculoskeletal: Back pain, Leg pain Skin: No symptom reported Psychiatric: No symptom reported Endocrine: No symptom reported Hemotologic/Lymphatic: No symptom reported Vital Signs Vital Signs Date Time Temp Pulse Resp B/P (MAP) Pulse Ox O2 Delivery O2 Flow Rate FiO2 04/27/24 05:00 97.8 70 17 84/36 (52) 96 97.8 04/26/24 20:00 Room Air* 0 21 Physical Exam Riley catheter in place Labs/Diagnostic Data Labs Test 04/27/24 06:48 04/22/24 10:57 Range/Units White Blood Count 9.4 # 4.4-10.8 10^3/uL Red Blood Count 3.68 L 4.5-5.90 10^6/uL Hemoglobin 9.3 #L 13.5-17.5 g/dL Hematocrit 29.5 #L 41.0-53.0 % Mean Corpuscular Volume 80.1 80.0-100.0 fL Mean Corpuscular Hemoglobin 25.2 L 28.0-32.0 pg Mean Corpuscular Hemoglobin Concent 31.5 L 32.0-36.0 g/dL Red Cell Distribution Width 15.9 H 11.8-14.3 % Platelet Count 169 140-450 10^3/uL Mean Platelet Volume 7.8 6.9-10.8 fL Neutrophils (%) (Auto) 89.6 H 37.0-80.0 % Lymphocytes (%) (Auto) 5.1 L 10.0-50.0 % Monocytes (%) (Auto) 5.0 0.0-12.0 % Eosinophils (%) (Auto) 0.1 0.0-7.0 % Basophils (%) (Auto) 0.2 0.0-2.0 % Neutrophils # (Auto) 8.4 1.6-8.6 10 ^3/uL Lymphocytes # (Auto) 0.5 0.4-5.4 10 ^3/uL Monocytes # (Auto) 0.5 0-1.3 10 ^3/uL Eosinophils # (Auto) 0 0-0.8 10 ^3/uL Basophils # (Auto) 0 0-0.2 10 ^3/uL Nucleated Red Blood Cells 0.0 % Serum Glucose 121 H 74-106 mg/dL Calcium Level 7.8 L 8.7-10.4 mg/dL Aspartate Amino Transferase (AST) 179 H 13-40 U/L Alkaline Phosphatase 77 46-116 U/L Prothrombin Time 10.2 9.3-11.8 sec Prothrombin Time INR 0.96 0.9-1.15 Activated Partial Thromboplast Time 27.3 24.5-34.5 SEC Urine Color Light-yellow Yellow Urine Clarity Clear Clear Urine pH 5.5 5.0-9.0 Urine Specific [place] 1.019 1.001-1.035 Urine Protein Negative Negative Urine Ketones Negative Negative Urine Blood Negative Negative /uL Urine Nitrite Negative Negative Urine Bilirubin Negative Negative Urine Urobilinogen Normal Negative mg/dL Urine Leukocyte Esterase Negative Negative /uL Urine RBC 1 0 - 3 /hpf Urine Microscopic WBC < 1 0-3 /HPF Urine Squamous Epithelial Cells None seen <5 /hpf Urine Bacteria None seen None Seen /hpf Urine Glucose Normal Normal mg/dL Assessment BPH Difficult Riley catheterization Plan/Recommendation Renal US PSA Urine culture Keep Riley to gravity Outpatient cystoscopy TBA Plan discussed with: Patient, Other OSEI DELANEY MD Apr 27, 2024 11:02
--- NOTE | 2024-04-27 11:18 | DVHINCON2 ---
Date Seen: Apr 27, [address] MOSELEY Family History: Diabetes mellitus G8 MOTHER Allergies: Coded Allergies: NO KNOWN ALLERGIES (Unverified , 01/22/24) Home Meds Reported Medications Tamsulosin Hcl (Tamsulosin Hcl) Unknown Strength Cap, PO QPM for 30 Days, MG 04/22/24 Latanoprost (LATANOPROST) 0.005 % Di, 1 DROP EACHEYE 01/26/24 Current Medications Current Medications Medications (Trade) Dose Ordered Sig/Nic Route PRN Reason Start Time Stop Time Status Last Admin Dextrose/Sodium Chloride 1,000 ml @ 100 mls/hr Q10H IV 04/26/24 16:45 04/26/24 16:57 DC Ondansetron HCl (Zofran) 4 mg Q4HP PRN IV NAUSEA / VOMITING 04/26/24 16:45 04/26/24 17:03 DC Acetaminophen (Tylenol Tablet) 650 mg Q6HP PRN PO MILD PAIN (1-3 PAIN SCALE) 04/26/24 16:45 04/26/24 16:59 DC Acetaminophen/ Hydrocodone Bitart ([place] 10/325MG Tab) 1 tab Q6HP PRN PO MODERATE PAIN (4-6 PAIN SCALE) 04/26/24 16:45 04/26/24 17:00 DC Morphine Sulfate 1 mg Q4HP PRN IV SEVERE PAIN (7-10 PAIN SCALE) 04/26/24 16:45 04/26/24 17:04 DC Cyclobenzaprine HCl (Flexeril Tablet) 10 mg TID PO 04/26/24 22:00 UNV Docusate Sodium (Colace Capsule) 100 mg BID PO 04/26/24 22:00 04/26/24 16:59 DC Cefazolin Sodium 50 ml @ 100 mls/hr Q8HR IV 04/26/24 22:00 04/28/24 14:29 UNV Nitroglycerin (Ntrostat Sublingual) 0.4 mg Q5MINP PRN SL FOR CHEST PAIN 04/26/24 16:45 04/26/24 17:04 DC Morphine Sulfate 2 mg Q30M PRN IV FOR CHEST PAIN 04/26/24 16:45 04/26/24 17:02 DC Dextrose/Sodium Chloride 1,000 ml @ 100 mls/hr Q10H IV 04/26/24 16:45 04/26/24 16:45 Ondansetron HCl (Zofran) 4 mg Q4HP PRN IV NAUSEA / VOMITING 04/26/24 16:45 Acetaminophen (Tylenol Tablet) 650 mg Q6HP PRN PO MILD PAIN (1-3 PAIN SCALE) 04/26/24 16:45 04/27/24 01:07 Acetaminophen/ Hydrocodone Bitart ([place] 10/325MG Tab) 1 tab Q6HP PRN PO MODERATE PAIN (4-6 PAIN SCALE) 04/26/24 16:45 Morphine Sulfate 1 mg Q4HP PRN IV SEVERE PAIN (7-10 PAIN SCALE) 04/26/24 16:45 Cyclobenzaprine HCl (Flexeril Tablet) 10 mg TID PO 04/26/24 22:00 04/27/24 05:22 Docusate Sodium (Colace Capsule) 100 mg BID PO 04/26/24 22:00 04/27/24 09:54 Cefazolin Sodium 50 ml @ 100 mls/hr Q8HR IV 04/26/24 22:00 04/28/24 14:29 04/27/24 05:28 Nitroglycerin (Ntrostat Sublingual) 0.4 mg Q5MINP PRN SL FOR CHEST PAIN 04/26/24 16:45 Morphine Sulfate 2 mg Q30M PRN IV FOR CHEST PAIN 04/26/24 16:45 Hydromorphone HCl (Dilaudid Injection) 0.5 mg Q10M PRN IV SEVERE PAIN (7-10 PAIN SCALE) 04/26/24 18:00 04/26/24 18:53 DC Vital Signs Vital Signs Date Time Temp Pulse Resp B/P (MAP) Pulse Ox O2 Delivery O2 Flow Rate FiO2 04/27/24 09:00 97.8 75 17 88/39 (55) 97 97.8 04/26/24 20:00 Room Air* 0 21 Labs/Diagnostic Data Labs Test 04/27/24 06:48 04/22/24 10:57 Range/Units White Blood Count 9.4 # 4.4-10.8 10^3/uL Red Blood Count 3.68 L 4.5-5.90 10^6/uL Hemoglobin 9.3 #L 13.5-17.5 g/dL Hematocrit 29.5 #L 41.0-53.0 % Mean Corpuscular Volume 80.1 80.0-100.0 fL Mean Corpuscular Hemoglobin 25.2 L 28.0-32.0 pg Mean Corpuscular Hemoglobin Concent 31.5 L 32.0-36.0 g/dL Red Cell Distribution Width 15.9 H 11.8-14.3 % Platelet Count 169 140-450 10^3/uL Mean Platelet Volume 7.8 6.9-10.8 fL Neutrophils (%) (Auto) 89.6 H 37.0-80.0 % Lymphocytes (%) (Auto) 5.1 L 10.0-50.0 % Monocytes (%) (Auto) 5.0 0.0-12.0 % Eosinophils (%) (Auto) 0.1 0.0-7.0 % Basophils (%) (Auto) 0.2 0.0-2.0 % Neutrophils # (Auto) 8.4 1.6-8.6 10 ^3/uL Lymphocytes # (Auto) 0.5 0.4-5.4 10 ^3/uL Monocytes # (Auto) 0.5 0-1.3 10 ^3/uL Eosinophils # (Auto) 0 0-0.8 10 ^3/uL Basophils # (Auto) 0 0-0.2 10 ^3/uL Nucleated Red Blood Cells 0.0 % Serum Glucose 121 H 74-106 mg/dL Calcium Level 7.8 L 8.7-10.4 mg/dL Aspartate Amino Transferase (AST) 179 H 13-40 U/L Alkaline Phosphatase 77 46-116 U/L Prostate Specific Antigen 1.65 0.0-4.0 ng/mL Prothrombin Time 10.2 9.3-11.8 sec Prothrombin Time INR 0.96 0.9-1.15 Activated Partial Thromboplast Time 27.3 24.5-34.5 SEC Urine Color Light-yellow Yellow Urine Clarity Clear Clear Urine pH 5.5 5.0-9.0 Urine Specific [place] 1.019 1.001-1.035 Urine Protein Negative Negative Urine Ketones Negative Negative Urine Blood Negative Negative /uL Urine Nitrite Negative Negative Urine Bilirubin Negative Negative Urine Urobilinogen Normal Negative mg/dL Urine Leukocyte Esterase Negative Negative /uL Urine RBC 1 0 - 3 /hpf Urine Microscopic WBC < 1 0-3 /HPF Urine Squamous Epithelial Cells None seen <5 /hpf Urine Bacteria None seen None Seen /hpf Urine Glucose Normal Normal mg/dL Assessment SEE DICTATED NOTE Plan discussed with: Patient Date of Service: Apr 27, 2024 Billing Provider: CHIO YAO MD Common Visit Codes: [id number] INP/OBS CARE (HIGH) CHIO YAO MD Apr 27, 2024 11:18
[2024-04-27] MEDS: HYDROcodone-ACET 10/325MG TAB PO PRN (11:34)
[2024-04-27 12:52] LABS: Alanine Aminotransferase 19 U/L (7-40); Albumin 3.2 g/dL (3.2-4.8); Alkaline Phosphatase 79 U/L (46-116); Anion Gap 6 (5-15); Aspartate Aminotransferase 37 U/L (13-40); BUN/Creatinine Ratio 10.1 (10.0-20.0); Bilirubin, Total 0.4 mg/dL (0.2-1.0); Blood Urea Nitrogen 12 mg/dL (9-23); Calcium 8.7 mg/dL (8.7-10.4); Carbon Dioxide 25 mmol/L (20-31); Potassium 4.1 mmol/L (3.5-5.1); Sodium 143 mmol/L (136-145)
[2024-04-27 12:54] LABS: Chloride 112 mmol/L (98-107); Glucose 130 mg/dL (74-106); Total Protein 4.9 g/dL (5.7-8.2)
[2024-04-27] MEDS: SODIUM CHLORIDE 0.9% 1,000 ML IV SCH (16:00)
[2024-04-27] MEDS: SODIUM CHLORIDE 0.9% 250 ML IV ONE (16:00)
--- NOTE | 2024-04-27 20:13 | DVHINCON2 ---
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 The patient at this time complains of pain in the back. No chest pain or shortness of breath. No nausea or vomiting. REVIEW OF SYSTEMS: Review of rest of systems are otherwise currently negative. PAST MEDICAL HISTORY: Significant for BPH. MEDICATIONS: He takes terazosin. ALLERGIES: No known drug allergies. SOCIAL HISTORY: Denies smoking or alcohol. Lives at home with his and son. FAMILY HISTORY: Negative. PHYSICAL EXAMINATION: GENERAL: The patient is awake, alert. VITAL SIGNS: Temperature of 98.2, pulse 80 per minute, blood pressure 84/43. SHEENT: Unremarkable. NECK: There is no JVD, no pedal edema. LUNGS: Equal bilaterally. No added sounds. CARDIOVASCULAR: S1, S2 is regular, no murmurs. ABDOMEN: Soft. There is no organomegaly. NEUROLOGIC: Nonfocal. MUSCULOSKELETAL: There is dressing and drains in place in the lumbar spine. ASSESSMENT AND PLAN: * Benign prostatic hypertrophy. The patient is status post coude catheter placement by Dr. Art. * Hypertension, for which he will be placed on IV fluids. * Status post lumbar spine surgery for degenerative joint disease of spine. The patient will be placed on pain medications and receive physical therapy. MD GIOVANNI Perla/LUPILLO TID: [id number] RECEIPT: [id number]
[2024-04-28 01:00] VITALS: BP 90/44; PULSE 106; RESP 17; TEMP 100; O2SAT 90
[2024-04-28 05:00] VITALS: BP 107/49; PULSE 94; RESP 17; TEMP 98.2; O2SAT 95
[2024-04-28] MEDS: MORPHINE SULFATE INJ 2 MG/ml SYRG IV PRN (05:10)
[2024-04-28 06:49] LABS: Basophils # (auto) 0 10 ^3/uL (0-0.2); Eosinophils # (auto) 0 10 ^3/uL (0-0.8); Hematocrit 25.4 % (41.0-53.0); Mean Corpuscular Hemoglobin 24.8 pg (28.0-32.0); Mean Corpuscular Hgb Conc. 31.6 g/dL (32.0-36.0); Mean Corpuscular Volume 78.5 fL (80.0-100.0); Monocytes # (auto) 0.6 10 ^3/uL (0-1.3); Nucleated Red Blood Cells % 0.1 %; Red Blood Cells 3.24 10^6/uL (4.5-5.90); Red Cell Distribution Width 15.9 % (11.8-14.3); White Blood Cell 8.2 10^3/uL (4.4-10.8)
[2024-04-28 06:52] LABS: Basophils % (auto) 0.2 % (0.0-2.0); Eosinophils % (auto) 0.4 % (0.0-7.0); Lymphocytes # (auto) 1.1 10 ^3/uL (0.4-5.4); Lymphocytes % (auto) 13.2 % (10.0-50.0); Monocytes % (auto) 7.8 % (0.0-12.0); Neutrophils # (auto) 6.4 10 ^3/uL (1.6-8.6); Neutrophils % (auto) 78.4 % (37.0-80.0); Platelet Count (auto) 170 10^3/uL (140-450)
[2024-04-28 06:54] LABS: Potassium 3.7 mmol/L (3.5-5.1)
[2024-04-28 06:55] LABS: Anion Gap 8 (5-15); Carbon Dioxide 22 mmol/L (20-31)
[2024-04-28 07:00] LABS: Blood Urea Nitrogen 12 mg/dL (9-23)
[2024-04-28 07:02] LABS: Calcium 8.2 mg/dL (8.7-10.4); Chloride 115 mmol/L (98-107); Glucose 121 mg/dL (74-106); Sodium 145 mmol/L (136-145)
[2024-04-28 08:00] VITALS: PULSE 85; RESP 20; O2SAT 92
[2024-04-28 08:41] VITALS: BP 90/39; PULSE 89; RESP 20; TEMP 98.3; O2SAT 91
[2024-04-28] MEDS: SODIUM CHLORIDE 0.9% 250 ML IV ONE (12:45)
--- NOTE | 2024-04-28 13:08 | DVHPN2 ---
Progress Note Date Seen: Apr 28, 2024 Medical Necessity Reason Pt with a Central, PICC or Fol: No Subjective Patient reports: No new complaints Review of Systems: HEENT:Normal, CVS:Normal, RESPIRATORY:Normal, GI:Normal, :Normal, MSK:Normal, NEURO:Normal Objective vital signs Vital Sign Date Time Temp Pulse Resp B/P (MAP) Pulse Ox O2 Delivery O2 Flow Rate FiO2 04/28/24 08:41 98.3 89 20 90/39 (56) 91 98.3 04/28/24 08:00 Room Air* 0 21 Total Intake and Output 04/27/24 04/27/24 04/28/24 15:00 23:00 07:00 Intake Total 1690 ml 650 ml Output Total 1900 ml 1100 ml Balance -210 ml -450 ml medications Current Medications Medications Dose Ordered Sig/Nic Route Start Time Stop Time Status Last Admin Dose Admin Cyclobenzaprine HCl 10 mg TID PO 04/26/24 22:00 UNV Cefazolin Sodium 50 ml @ 100 mls/hr Q8HR IV 04/26/24 22:00 04/28/24 14:29 UNV Ondansetron HCl 4 mg Q4HP PRN IV 04/26/24 16:45 Acetaminophen 650 mg Q6HP PRN PO 04/26/24 16:45 04/28/24 00:11 650 MG Acetaminophen/ Hydrocodone Bitart 1 tab Q6HP PRN PO 04/26/24 16:45 04/28/24 10:20 1 TAB Morphine Sulfate 1 mg Q4HP PRN IV 04/26/24 16:45 04/28/24 05:10 1 MG Cyclobenzaprine HCl 10 mg TID PO 04/26/24 22:00 04/28/24 05:18 10 MG Docusate Sodium 100 mg BID PO 04/26/24 22:00 04/28/24 10:19 100 MG Cefazolin Sodium 50 ml @ 100 mls/hr Q8HR IV 04/26/24 22:00 04/28/24 14:29 04/28/24 05:18 100 MLS/HR Nitroglycerin 0.4 mg Q5MINP PRN SL 04/26/24 16:45 Morphine Sulfate 2 mg Q30M PRN IV 04/26/24 16:45 Sodium Chloride 1,000 ml @ 100 mls/hr Q10H IV 04/27/24 16:00 04/27/24 20:07 100 MLS/HR Examination: GENERAL:Normal, HEENT:Normal, NECK:Normal, LUNGS:Normal, CVS:Normal, ABDOMEN:Normal, MSK:Normal, MSK:Abnormal (lumber dressing), SKIN:Normal, NEURO:Normal, :Normal laboratory and microbiology Laboratory Tests 04/28/24 06:01 Test 04/28/24 06:01 Range/Units Serum Glucose 121 H 74-106 mg/dL Microbiology Date/Time Source Procedure Growth Status 04/27/24 14:00 Urine - Catheterized Urine Culture - Preliminary Resulted Problem List/Assessment/Plan Problem List/Assessment/Plan * Benign prostatic hypertrophy. The patient is status post coude catheter placement by Dr. Art. * Hypotension: ivf * acute renal failure ?vasomotor nephropathy: ivf * Status post lumbar spine surgery for degenerative joint disease of spine. The patient will be placed on pain medications and receive physical therapy. Plan discussed with: Patient My Orders My Orders Orders - CHIO YAO MD Procedure Category Date Status Time Sodium Chloride 0.9% PHA 04/27/24 In Process 16:00 * Water Valve Repairer CONS 04/28/24 Transmitted Consult Sodium Chloride 0.9% PHA 04/28/24 Logged 12:45 Basic Metabolic Panel LAB 04/29/24 Verified 06:00 Complete Blood Count LAB 04/29/24 Verified 06:00 Date of Service: Apr 28, 2024 Billing Provider: CHIO YAO MD Common Visit Codes: [id number] INP/OBS CARE(HIGH) CHIO YAO MD Apr 28, 2024 13:08
[2024-04-28 20:00] VITALS: PULSE 104; RESP 20; O2SAT 92
[2024-04-28 21:00] VITALS: BP 107/58; PULSE 100; RESP 18; TEMP 99.4; O2SAT 93
[2024-04-29] VITALS (8 sets, daily range): BP systolic 96–103; BP diastolic 47–60; PULSE 64–104; RESP 16–18; TEMP 97.7–98.8; O2SAT 89–97
[2024-04-29 07:13] LABS: Anion Gap 10 (5-15); Calcium 8.8 mg/dL (8.7-10.4); Carbon Dioxide 23 mmol/L (20-31); Sodium 142 mmol/L (136-145)
[2024-04-29 07:17] LABS: Basophils # (auto) 0 10 ^3/uL (0-0.2); Basophils % (auto) 0.5 % (0.0-2.0); Lymphocytes # (auto) 1.5 10 ^3/uL (0.4-5.4); Mean Corpuscular Volume 77.9 fL (80.0-100.0); Monocytes # (auto) 0.6 10 ^3/uL (0-1.3)
[2024-04-29 07:19] LABS: BUN/Creatinine Ratio 8.9 (10.0-20.0); Blood Urea Nitrogen 10 mg/dL (9-23); Eosinophils # (auto) 0.2 10 ^3/uL (0-0.8); Eosinophils % (auto) 1.8 % (0.0-7.0); Glucose 93 mg/dL (74-106); Hematocrit 27.2 % (41.0-53.0); Hemoglobin 8.6 g/dL (13.5-17.5); Mean Corpuscular Hemoglobin 24.8 pg (28.0-32.0); Mean Corpuscular Hgb Conc. 31.8 g/dL (32.0-36.0); Monocytes % (auto) 7.5 % (0.0-12.0); Neutrophils # (auto) 6.3 10 ^3/uL (1.6-8.6); Neutrophils % (auto) 73.2 % (37.0-80.0); Nucleated Red Blood Cells % 0.1 %; Platelet Count (auto) 172 10^3/uL (140-450); Red Blood Cells 3.49 10^6/uL (4.5-5.90); Red Cell Distribution Width 15.7 % (11.8-14.3); White Blood Cell 8.6 10^3/uL (4.4-10.8)
[2024-04-29 07:24] LABS: Chloride 109 mmol/L (98-107); Potassium 3.3 mmol/L (3.5-5.1)
[2024-04-29] MEDS: POTASSIUM EFFERVESENT TAB 25 MEQ PO ONE (11:06)
--- NOTE | 2024-04-29 13:33 | DVHPN2 ---
Subjective Patient denies any symptoms. States he was not getting out of bed. Reviewed: Care Plan, H&P, Labs, Medications Changes from previous H/P or p: No Changes General: Per HPI Objective Vitals Vital Signs Date Time Temp Pulse Resp B/P (MAP) Pulse Ox O2 Delivery O2 Flow Rate FiO2 04/29/24 09:00 98.1 100 16 101/47 (65) 91 98.1 04/29/24 08:00 Room Air* 0 21 Intake/Output Intake and Output 04/29/24 07:00 Intake Total 600 ml Output Total 3030 ml Balance -2430 ml Intake Oral 600 ml Output Urine Total 3030 ml General Appearance: Alert, Oriented X3, Cooperative HEENT: Atraumatic, PERRLA Lungs: Clear to auscultation, Normal air movement Cardiovascular: Normal S1, Normal S2 Back: Flank Tenderness, Midline Tenderness Neuro: Normal gait, Normal speech Psych/Mental Status: Mental status NL, Mood NL Medications Current Medications Medications Dose Ordered Sig/Nic Route Start Time Stop Time Status Last Admin Dose Admin Cyclobenzaprine HCl 10 mg TID PO 04/26/24 22:00 UNV Cefazolin Sodium 50 ml @ 100 mls/hr Q8HR IV 04/26/24 22:00 04/28/24 14:29 UNV Ondansetron HCl 4 mg Q4HP PRN IV 04/26/24 16:45 Acetaminophen 650 mg Q6HP PRN PO 04/26/24 16:45 04/29/24 10:08 650 MG Acetaminophen/ Hydrocodone Bitart 1 tab Q6HP PRN PO 04/26/24 16:45 04/28/24 10:20 1 TAB Morphine Sulfate 1 mg Q4HP PRN IV 04/26/24 16:45 04/28/24 05:10 1 MG Cyclobenzaprine HCl 10 mg TID PO 04/26/24 22:00 04/29/24 05:59 10 MG Docusate Sodium 100 mg BID PO 04/26/24 22:00 04/29/24 10:07 100 MG Nitroglycerin 0.4 mg Q5MINP PRN SL 04/26/24 16:45 Morphine Sulfate 2 mg Q30M PRN IV 04/26/24 16:45 Laboratory Results Laboratory Tests 04/29/24 05:54 Chemistry Test 04/29/24 05:54 Calcium Level 8.8 mg/dL (8.7-10.4) Urinalysis Test 04/22/24 10:57 Urine Color Light-yellow (Yellow) Urine Clarity Clear (Clear) Urine pH 5.5 (5.0-9.0) Urine Specific [place] 1.019 (1.001-1.035) Urine Protein Negative (Negative) Urine Ketones Negative (Negative) Urine Blood Negative /uL (Negative) Urine Nitrite Negative (Negative) Urine Bilirubin Negative (Negative) Urine Urobilinogen Normal mg/dL (Negative) Urine Leukocyte Esterase Negative /uL (Negative) Urine RBC 1 /hpf (0 - 3) Urine Microscopic WBC < 1 /HPF (0-3) Urine Squamous Epithelial Cells None seen /hpf (<5) Urine Bacteria None seen /hpf (None Seen) Urine Glucose Normal mg/dL (Normal) Microbiology Microbiology Date/Time Source Procedure Growth Status 04/27/24 14:00 Urine - Catheterized Urine Culture - Preliminary Resulted Labs and/or images reviewed: Labs reviewed by me, Image(s) reviewed by me Assessment/Plan Assessment/Plan Impression: -BPH -hypotension -acute kidney injury -anemia -lumbar spinal degenerative joint disease, status post surgery -postop hypotension Plan: -patient had inability to void postop. Riley catheter was placed. Urology consultation placed -IV hydration -physical therapy -pain management -start iron supplementation -DC planning once cleared by spine surgery. Patient also needs to increase ambulation Total time spent with patient discussing and formulating plan of care: 35 minutes. This medical document was created using an electronic medical record system with [employer] dictation system. Although this document has been carefully reviewed, there may still be some phonetic and typographical errors. These areas are purely typographical due to imperfections of the software programs, and do not reflect any compromise in the patient's medical care. Plan discussed with: Patient, Other (RN) Date of Service: Apr 29, 2024 Billing Provider: DEMETRIO DE LA CRUZ NP Common Visit Codes: [id number] INP/OBS CARE(HIGH) DEMETRIO DE LA CRUZ NP Apr 29, 2024 13:33
[2024-04-30] VITALS (8 sets, daily range): BP systolic 92–108; BP diastolic 43–70; PULSE 77–100; RESP 16–20; TEMP 97.7–99.4; O2SAT 92–99
[2024-04-30 07:21] LABS: Hematocrit 26.8 % (41.0-53.0); Hemoglobin 8.8 g/dL (13.5-17.5)
[2024-04-30] MEDS: IRON SUCROSE COMPLEX 110 ML IV SCH (13:21)
--- NOTE | 2024-04-30 14:06 | DVHPN2 ---
Subjective The patient is seen and examined at bedside. KASSI drain still intact. Reviewed: Care Plan, H&P, Labs, Medications Changes from previous H/P or p: No Changes General: Per HPI Objective Vitals Vital Signs Date Time Temp Pulse Resp B/P (MAP) Pulse Ox O2 Delivery O2 Flow Rate FiO2 04/30/24 09:00 97.7 78 18 92/51 (65) 95 97.7 04/29/24 20:00 Room Air* 0 21 Intake/Output Intake and Output 04/30/24 07:00 Intake Total 850 ml Output Total 1750 ml Balance -900 ml Intake Oral 850 ml Output Urine Total 1750 ml General Appearance: Alert, Oriented X3, Cooperative HEENT: Atraumatic, PERRLA Lungs: Clear to auscultation, Normal air movement Cardiovascular: Normal S1, Normal S2 Back: Flank Tenderness, Midline Tenderness Neuro: Normal gait, Normal speech Psych/Mental Status: Mental status NL, Mood NL Medications Current Medications Medications Dose Ordered Sig/Nic Route Start Time Stop Time Status Last Admin Dose Admin Cyclobenzaprine HCl 10 mg TID PO 04/26/24 22:00 UNV Cefazolin Sodium 50 ml @ 100 mls/hr Q8HR IV 04/26/24 22:00 04/28/24 14:29 UNV Ondansetron HCl 4 mg Q4HP PRN IV 04/26/24 16:45 Acetaminophen 650 mg Q6HP PRN PO 04/26/24 16:45 04/30/24 09:28 650 MG Acetaminophen/ Hydrocodone Bitart 1 tab Q6HP PRN PO 04/26/24 16:45 04/30/24 09:37 1 TAB Morphine Sulfate 1 mg Q4HP PRN IV 04/26/24 16:45 04/28/24 05:10 1 MG Cyclobenzaprine HCl 10 mg TID PO 04/26/24 22:00 04/30/24 05:44 10 MG Docusate Sodium 100 mg BID PO 04/26/24 22:00 04/30/24 09:28 100 MG Nitroglycerin 0.4 mg Q5MINP PRN SL 04/26/24 16:45 Morphine Sulfate 2 mg Q30M PRN IV 04/26/24 16:45 Iron Sucrose 110 ml @ 110 mls/hr DAILY@1200 IV 04/30/24 12:00 05/04/24 12:59 3/1/25 13:21 110 MLS/HR Laboratory Results Laboratory Tests 04/29/24 05:54 04/30/24 06:25 Urinalysis Test 04/22/24 10:57 Urine Color Light-yellow (Yellow) Urine Clarity Clear (Clear) Urine pH 5.5 (5.0-9.0) Urine Specific [place] 1.019 (1.001-1.035) Urine Protein Negative (Negative) Urine Ketones Negative (Negative) Urine Blood Negative /uL (Negative) Urine Nitrite Negative (Negative) Urine Bilirubin Negative (Negative) Urine Urobilinogen Normal mg/dL (Negative) Urine Leukocyte Esterase Negative /uL (Negative) Urine RBC 1 /hpf (0 - 3) Urine Microscopic WBC < 1 /HPF (0-3) Urine Squamous Epithelial Cells None seen /hpf (<5) Urine Bacteria None seen /hpf (None Seen) Urine Glucose Normal mg/dL (Normal) Microbiology Microbiology Date/Time Source Procedure Growth Status 04/27/24 14:00 Urine - Catheterized Urine Culture - Final Complete Labs and/or images reviewed: Labs reviewed by me Assessment/Plan Assessment/Plan -BPH -hypotension -acute kidney injury -anemia -lumbar spinal degenerative joint disease, status post surgery -postop hypotension Plan: -patient had inability to void postop. Riley catheter was placed. Urology consultation placed -IV hydration -physical therapy -pain management -start iron supplementation -DC planning once cleared by spine surgery. Encouraged the patient to be out and ambulate Plan discussed with: Patient Date of Service: Apr 30, 2024 Billing Provider: MANINDER BRUNSON MD Common Visit Codes: [id number] INP/OBS CARE(HIGH) MANINDER BRUNSON MD Apr 30, 2024 14:06
[2024-04-30] MEDS: SODIUM CHLORIDE 0.9% 250 ML IV ONE (17:30)
[2024-05-01] VITALS (9 sets, daily range): BP systolic 82–110; BP diastolic 44–57; PULSE 77–90; RESP 18–20; TEMP 97.6–98.7; O2SAT 93–99
[2024-05-01] MEDS: POTASSIUM CHL 20 Meq TABLET PO ONE (14:27)
[2024-05-01 22:07] LABS: Potassium 3.7 mmol/L (3.5-5.1); Sodium 141 mmol/L (136-145)
[2024-05-01 22:08] LABS: Anion Gap 9 (5-15); Carbon Dioxide 24 mmol/L (20-31)
[2024-05-01 22:09] LABS: Calcium 9.3 mg/dL (8.7-10.4)
[2024-05-01 22:13] LABS: BUN/Creatinine Ratio 10.3 (10.0-20.0); Blood Urea Nitrogen 12 mg/dL (9-23)
[2024-05-01 22:20] LABS: Chloride 108 mmol/L (98-107); Glucose 113 mg/dL (74-106)
--- NOTE | 2024-05-01 22:27 | DVHPN2 ---
Subjective The patient is seen and examined at bedside. Still complaint of back pain Reviewed: Care Plan, H&P, Labs, Medications Changes from previous H/P or p: No Changes General: Per HPI Objective Vitals Vital Signs Date Time Temp Pulse Resp B/P (MAP) Pulse Ox O2 Delivery O2 Flow Rate FiO2 05/01/24 20:04 77 18 Room Air* 0 21 05/01/24 17:00 97.6 82/51 (61) 98 97.6 Intake/Output Intake and Output 05/01/24 07:00 Intake Total 2040 ml Output Total 2125 ml Balance -85 ml Intake Oral 1930 ml IV Total 110 ml Output Urine Total 2125 ml General Appearance: Alert, Oriented X3, Cooperative HEENT: Atraumatic, PERRLA Lungs: Clear to auscultation, Normal air movement Cardiovascular: Normal S1, Normal S2 Back: Flank Tenderness, Midline Tenderness Neuro: Normal gait, Normal speech Psych/Mental Status: Mental status NL, Mood NL Medications Current Medications Medications Dose Ordered Sig/Nic Route Start Time Stop Time Status Last Admin Dose Admin Cyclobenzaprine HCl 10 mg TID PO 04/26/24 22:00 UNV Cefazolin Sodium 50 ml @ 100 mls/hr Q8HR IV 04/26/24 22:00 04/28/24 14:29 UNV Ondansetron HCl 4 mg Q4HP PRN IV 04/26/24 16:45 Acetaminophen 650 mg Q6HP PRN PO 04/26/24 16:45 04/30/24 09:28 650 MG Acetaminophen/ Hydrocodone Bitart 1 tab Q6HP PRN PO 04/26/24 16:45 04/30/24 09:37 1 TAB Morphine Sulfate 1 mg Q4HP PRN IV 04/26/24 16:45 04/28/24 05:10 1 MG Cyclobenzaprine HCl 10 mg TID PO 04/26/24 22:00 05/01/24 21:02 10 MG Docusate Sodium 100 mg BID PO 04/26/24 22:00 05/01/24 21:02 100 MG Nitroglycerin 0.4 mg Q5MINP PRN SL 04/26/24 16:45 Morphine Sulfate 2 mg Q30M PRN IV 04/26/24 16:45 Iron Sucrose 110 ml @ 110 mls/hr DAILY@1200 IV 04/30/24 12:00 05/04/24 12:59 05/01/24 11:48 110 MLS/HR Laboratory Results Laboratory Tests 04/29/24 05:54 04/30/24 06:25 05/01/24 21:25 Chemistry Test 05/01/24 21:25 Calcium Level 9.3 mg/dL (8.7-10.4) Urinalysis Test 04/22/24 10:57 Urine Color Light-yellow (Yellow) Urine Clarity Clear (Clear) Urine pH 5.5 (5.0-9.0) Urine Specific [place] 1.019 (1.001-1.035) Urine Protein Negative (Negative) Urine Ketones Negative (Negative) Urine Blood Negative /uL (Negative) Urine Nitrite Negative (Negative) Urine Bilirubin Negative (Negative) Urine Urobilinogen Normal mg/dL (Negative) Urine Leukocyte Esterase Negative /uL (Negative) Urine RBC 1 /hpf (0 - 3) Urine Microscopic WBC < 1 /HPF (0-3) Urine Squamous Epithelial Cells None seen /hpf (<5) Urine Bacteria None seen /hpf (None Seen) Urine Glucose Normal mg/dL (Normal) Microbiology Microbiology Date/Time Source Procedure Growth Status 04/27/24 14:00 Urine - Catheterized Urine Culture - Final Complete Labs and/or images reviewed: Labs reviewed by me Assessment/Plan Assessment/Plan -BPH -hypotension -acute kidney injury -anemia -lumbar spinal degenerative joint disease, status post surgery -postop hypotension Plan: -patient had inability to void postop. Riley catheter was placed. Urology consultation placed -IV hydration -physical therapy -pain management -start iron supplementation -DC planning once cleared by spine surgery. Explained to the patient that he needs to try to increase ambulation. Discharge planning. We will give 500 mL normal saline bolus. We will monitor blood pressure. This medical document was created using an electronic medical record system with [employer] direct computerized dictation system. Although this document has been carefully reviewed, there may still be some phonetic and typographical errors. These areas are purely typographical due to imperfections of the software programs, and do not reflect any compromise in the patient's medical care. Plan discussed with: Patient Date of Service: May 01, 2024 Billing Provider: MANINDER BRUNSON MD Common Visit Codes: [id number] INP/OBS CARE(HIGH) MANINDER BRUNSON MD May 01, 2024 22:27
[2024-05-02] VITALS (8 sets, daily range): BP systolic 87–112; BP diastolic 36–68; PULSE 78–97; RESP 16–18; TEMP 97.8–98.5; O2SAT 94–97
[2024-05-02] MEDS: SODIUM CHLORIDE 0.9% 500 ML IV ONE ×2 (00:25→02:55)
--- NOTE | 2024-05-02 11:10 | DVHPN2 ---
Progress Note Date Seen: May 02, 2024 Medical Necessity Reason Pt with a Central, PICC or Fol: Yes The following are medically ne: Champion Catheter Reason for champion catheter: Bladder Retention/Obstruc Subjective Patient reports: No new complaints Review of Systems: HEENT:Normal, CVS:Normal, RESPIRATORY:Normal, GI:Normal, :Normal, MSK:Normal, NEURO:Normal Objective vital signs Vital Sign Date Time Temp Pulse Resp B/P (MAP) Pulse Ox O2 Delivery O2 Flow Rate FiO2 05/02/24 08:52 98.1 83 16 90/48 (62) 96 98.1 05/02/24 08:00 Room Air* 0 21 Total Intake and Output 05/01/24 05/01/24 05/02/24 15:00 23:00 07:00 Intake Total 550 ml 720 ml 1660 ml Output Total 200 ml 1100 ml Balance 550 ml 520 ml 560 ml medications Current Medications Medications Dose Ordered Sig/Nic Route Start Time Stop Time Status Last Admin Dose Admin Cyclobenzaprine HCl 10 mg TID PO 04/26/24 22:00 UNV Cefazolin Sodium 50 ml @ 100 mls/hr Q8HR IV 04/26/24 22:00 04/28/24 14:29 UNV Ondansetron HCl 4 mg Q4HP PRN IV 04/26/24 16:45 Acetaminophen 650 mg Q6HP PRN PO 04/26/24 16:45 05/02/24 00:56 650 MG Acetaminophen/ Hydrocodone Bitart 1 tab Q6HP PRN PO 04/26/24 16:45 04/30/24 09:37 1 TAB Morphine Sulfate 1 mg Q4HP PRN IV 04/26/24 16:45 04/28/24 05:10 1 MG Cyclobenzaprine HCl 10 mg TID PO 04/26/24 22:00 05/01/24 21:02 10 MG Docusate Sodium 100 mg BID PO 04/26/24 22:00 05/02/24 09:46 100 MG Nitroglycerin 0.4 mg Q5MINP PRN SL 04/26/24 16:45 Morphine Sulfate 2 mg Q30M PRN IV 04/26/24 16:45 Iron Sucrose 110 ml @ 110 mls/hr DAILY@1200 IV 04/30/24 12:00 05/04/24 12:59 05/01/24 11:48 110 MLS/HR Examination: GENERAL:Normal, HEENT:Normal, NECK:Normal, LUNGS:Normal, CVS:Normal, ABDOMEN:Normal, MSK:Normal, SKIN:Normal, NEURO:Normal, :Normal laboratory and microbiology Laboratory Tests 05/01/24 21:25 04/30/24 06:25 04/29/24 05:54 Test 05/01/24 21:25 Range/Units Serum Glucose 113 H 74-106 mg/dL Microbiology Date/Time Source Procedure Growth Status 04/27/24 14:00 Urine - Catheterized Urine Culture - Final Complete Problem List/Assessment/Plan Problem List/Assessment/Plan * Benign prostatic hypertrophy. The patient is status post coude catheter placement by Dr. Art. * Hypotension * acute renal failure ?vasomotor nephropathY *anemia: iv iron * Status post lumbar spine surgery for degenerative joint disease of spine. The patient will be placed on pain medications and receive physical therapy. Plan discussed with: Patient Date of Service: May 02, 2024 Billing Provider: CHIO YAO MD Common Visit Codes: [id number] INP/OBS CARE(HIGH) CHIO YAO MD May 02, 2024 11:10
[2024-05-02] MEDS: LACTULOSE 20Gm/30ML SOLN PO ONE (12:05)
[2024-05-02] MEDS: POLYETHYLENE GLYCOL 17 GM PWDR PO ONE (12:05)
[2024-05-03] VITALS (8 sets, daily range): BP systolic 87–122; BP diastolic 48–72; PULSE 82–104; RESP 16–19; TEMP 97.8–98.7; O2SAT 95–98
--- NOTE | 2024-05-03 11:02 | DVHPN2 ---
Progress Note Date Seen: May 03, 2024 Medical Necessity Reason Pt with a Central, PICC or Fol: Yes The following are medically ne: Champion Catheter Reason for champion catheter: Bladder Retention/Obstruc Subjective Patient reports: No new complaints Review of Systems: HEENT:Normal, CVS:Normal, RESPIRATORY:Normal, GI:Normal, :Normal, MSK:Normal, NEURO:Normal Objective vital signs Vital Sign Date Time Temp Pulse Resp B/P (MAP) Pulse Ox O2 Delivery O2 Flow Rate FiO2 05/03/24 09:57 97.8 83 16 87/48 (61) 95 97.8 05/02/24 20:00 Room Air* 0 21 Total Intake and Output 05/02/24 05/02/24 05/03/24 15:00 23:00 07:00 Intake Total 660 ml 900 ml Output Total 1150 ml 450 ml Balance -490 ml 450 ml medications Current Medications Medications Dose Ordered Sig/Nic Route Start Time Stop Time Status Last Admin Dose Admin Cyclobenzaprine HCl 10 mg TID PO 04/26/24 22:00 UNV Cefazolin Sodium 50 ml @ 100 mls/hr Q8HR IV 04/26/24 22:00 04/28/24 14:29 UNV Ondansetron HCl 4 mg Q4HP PRN IV 04/26/24 16:45 Acetaminophen 650 mg Q6HP PRN PO 04/26/24 16:45 05/03/24 10:58 650 MG Acetaminophen/ Hydrocodone Bitart 1 tab Q6HP PRN PO 04/26/24 16:45 04/30/24 09:37 1 TAB Morphine Sulfate 1 mg Q4HP PRN IV 04/26/24 16:45 04/28/24 05:10 1 MG Cyclobenzaprine HCl 10 mg TID PO 04/26/24 22:00 05/03/24 06:07 10 MG Docusate Sodium 100 mg BID PO 04/26/24 22:00 05/02/24 21:56 100 MG Nitroglycerin 0.4 mg Q5MINP PRN SL 04/26/24 16:45 Morphine Sulfate 2 mg Q30M PRN IV 04/26/24 16:45 Iron Sucrose 110 ml @ 110 mls/hr DAILY@1200 IV 04/30/24 12:00 05/04/24 12:59 05/02/24 12:05 110 MLS/HR Examination: GENERAL:Normal, HEENT:Normal, NECK:Normal, LUNGS:Normal, CVS:Normal, ABDOMEN:Normal, MSK:Normal, MSK:Abnormal (lumber dressing), SKIN:Normal, NEURO:Normal, :Normal laboratory and microbiology Laboratory Tests 05/01/24 21:25 04/30/24 06:25 04/29/24 05:54 Test 05/01/24 21:25 Range/Units Serum Glucose 113 H 74-106 mg/dL Microbiology Date/Time Source Procedure Growth Status 04/27/24 14:00 Urine - Catheterized Urine Culture - Final Complete Problem List/Assessment/Plan Problem List/Assessment/Plan * Benign prostatic hypertrophy. The patient is status post coude catheter placement by Dr. Art. * Hypotension * acute renal failure ?vasomotor nephropathY *anemia: iv iron * Status post lumbar spine surgery for degenerative joint disease of spine. The patient will be placed on pain medications and receive physical therapy. Plan discussed with: Patient Date of Service: May 03, 2024 Billing Provider: CHIO YAO MD Common Visit Codes: [id number] INP/OBS CARE(HIGH) CHIO YAO MD May 03, 2024 11:02
--- NOTE | 2024-05-03 11:38 | DVHOP2 ---
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 These include but are not limited to complications of anesthesia, postoperative infection, incomplete relief of symptoms, recurrence of symptoms, damage to blood vessels, nerves and tendons, deep venous thrombosis, pulmonary embolism and possible need for repeat surgery in the future. Name of Procedure Performed see detailed note Procedure Details Procedure Details: Pre-op Diagnosis: Lumbar Degenerative Disk Disease and Lumbar Spinal Stenosis causing Incapacitating back pain, radiculopathy and progressive neurologic deficit Post-op Diagnosis: Lumbar Degenerative Disk Disease and Lumbar Spinal Stenosis causing Incapacitating back pain, radiculopathy and progressive neurologic deficit Procedure: Lumbar 5 laminectomy with Lumbar 5 foraminotomies and facetectomies to decompress central canal and Lumbar 5 nerve roots Lumbar 4 laminectomy with Lumbar 4 foraminotomies and facetectomies to decompress central canal and Lumbar 4 nerve roots Lumbar 3 laminectomy with Lumbar 3 foraminotomies and facetectomies to decompress central canal and Lumbar 4 nerve roots Lumbar 3 to 4 posterior spinal interbody fusion with PEEK cage Lumbar 4 to 5 posterior spinal interbody fusion with PEEK cage Lumbar 3 to 5 posterior spinal instrumentation with pedicle screws Local Bone Autograft For Fusion Allograft Bone Substitute (Bacterin) to augment Fusion Use of Demineralized Bone Matrix to Augment Fusion Microscope For Microdissection Surgeon: Michael Aguilera MD Assist: AMRANDO Montoya Anesthesia: General Fluids and EBL: See anesthesia note Patient was seen in the Pre Anesthesia Care Unit (PACU) and the operative site was initialed by me. All questions were answered to the patients satisfaction and chart reviewed. The patient was taken to the operative room where pre-operative antibiotics were given 30 minutes prior to incision. General anesthesia was induced and neuro-monitoring leads placed. Riley catheter was placed. The patient was turned prone onto the [facility] spinal table. While positioning, I made sure that the belly was free to allow proper expansion of the lungs. The hips were extended and all bony prominences padded. The shoulders were abducted 80 degree and the elbows flexed 100 degrees with no tension on the brachial plexus. I check the foot arterial pulses and they were palpable. The patient was prepped and draped and time out was taken at this time per usual protocol. At this time, the C-arm fluoroscope was brought in and was used to bucky the incision borders proximally and distally. Using a Number 10 Blade, an incision was made extending it proximally and distally per C arm bucky from the posterior spinous process of lumbar 4,5 down to the lumbo-dorsal fascia. All bleeding was controlled with electrocautery. Self-retaining retractors were placed. Electrocautery was then used to take down the lumbo- dorsal fascia, to free the muscle off the bone bilaterally. A Daniel retractor was placed over the posterior spinous process proximally and a lateral C-arm fluoroscope image was taken to insure we were at the correct level. Next, using bovie electro cautery, The deep fascia laterally to the facet joints was removed to expose the transverse processes of lumbar 3, 4 and 5 while taking care to avoid injuring the facet capsule at the proximal end of the incision. Next, the microscope was bought in for visualization and using a Luxell rongeur, the posterior spinous process of lumbar 3 and 4 and 5 bone were removed and the bone was saved for use as local autograft. I used alternating Kerison 2 mm and 3 mm rongeurs to perform central laminectomies lumbar 5 and 4 and 3 to decompress the central canal. Next using alternating Kerison 2mm and 3 mm rongeurs, the superior articular facets of lumbar 3, 4 and 5 were removed bilaterally to decompress the lateral recess (facetectomies) and then extended proximally to decompress the foramen bilaterally (foraminotomies). I used a ball tipped nerve probed to insure that the respective nerve roots were able to be mobilized 5mm in each direction were unimpeded in the lateral recess and foramen. Next I carefully inspected the dura to make sure no durotomy was visible and it was not. I retracted the right lumbar 5 nerve medially and used increasing size clay until the proper size prepared and then inserted a 10 X28mm PEEK cage in to the disc space at L4/5 using C arm fluoroscopy. I repeated this process at the L3/4 level. Both PEEK cages were [id number] I covered the exposed dura with gelfoam soaked in thrombin and the microscope was wheeled away from the operative filed. The C-arm fluoroscope was brought in and perfect AP views of the lumbar 4 and 5 pedicles were obtained. I placed bilateral pedicle screws at these levels by: using a Lenke awl to make a automatic pilot mechanic hole, then a ball tip robe to make sure there was no pedicle breach, then a tap to prepare the track and a 6.5 mm diameter 45 mm length pedicle screw was placed bilaterally. This step to place bilateral pedicle screws was repeated up to the lumbar 3, 4 and 5 level. Next, the c-arm fluoroscope took an AP and lateral x-ray to ensure proper placement of the pedicle screws. Next, the neuro-stimulation probe was placed over the tip of each screw and each screw stimulated only after a current greater than 10 mA was delivered to the screw. Next , I took a Midas Fazal Drill to decorticate the transverse process which were exposed and local bone graft, Bacterin allograft bone substitute and Demineralized bone matrix were placed along the inter transverse process intervals bilaterally (the fusion bed). Next a curved diana sized to fit the pedicle screw interval was placed and secured to each pedicle screw using set screws, The set screws were tightened using a torque screwdriver (set to 10 N*M torque) to secure the diana to the pedicle screws bilaterally. Final AP and lateral C arm fluoroscopic films were taken at this time. Next a 10 Guamanian diameter Hemovac drain was laced deep to the lumbo-dorsal fascia. The lumbo-dorsal fascia was closed with interrupted 0- Vicry sutures. The subcutaneous tissue was closed with interrupted 2-0 Vicryl sutures. The skin was closed with running 2-0 nylon suture. Sterile dressings were place. The pt. was turned supine onto the stretcher, extubated and taken to the recovery room in stable condition. Condition Stable Disposition Still a Patient MICHAEL AGUILERA MD May 03, 2024 11:38
--- NOTE | 2024-05-03 12:45 | DVHPN2 ---
Progress Note - Dictate Date Seen: May 03, 2024 Medical Necessity Reason Pt with a Central, PICC or Fol: Yes The following are medically ne: Champion Catheter Reason for champion catheter: Bladder Retention/Obstruc Medical Necessity Reason Urinary retention Difficult Champion placement PSA 1.65 Urine culture negative Renal US normal Subjective None vital signs Vital Sign Date Time Temp Pulse Resp B/P (MAP) Pulse Ox O2 Delivery O2 Flow Rate FiO2 05/03/24 09:57 97.8 83 16 87/48 (61) 95 97.8 05/02/24 20:00 Room Air* 0 21 Total Intake and Output 05/02/24 05/02/24 05/03/24 15:00 23:00 07:00 Intake Total 660 ml 900 ml Output Total 1150 ml 450 ml Balance -490 ml 450 ml medications Current Medications Medications Dose Ordered Sig/Nic Route Start Time Stop Time Status Last Admin Dose Admin Cyclobenzaprine HCl 10 mg TID PO 04/26/24 22:00 UNV Cefazolin Sodium 50 ml @ 100 mls/hr Q8HR IV 04/26/24 22:00 04/28/24 14:29 UNV Ondansetron HCl 4 mg Q4HP PRN IV 04/26/24 16:45 Acetaminophen 650 mg Q6HP PRN PO 04/26/24 16:45 05/03/24 10:58 650 MG Acetaminophen/ Hydrocodone Bitart 1 tab Q6HP PRN PO 04/26/24 16:45 04/30/24 09:37 1 TAB Morphine Sulfate 1 mg Q4HP PRN IV 04/26/24 16:45 04/28/24 05:10 1 MG Cyclobenzaprine HCl 10 mg TID PO 04/26/24 22:00 05/03/24 06:07 10 MG Docusate Sodium 100 mg BID PO 04/26/24 22:00 05/02/24 21:56 100 MG Nitroglycerin 0.4 mg Q5MINP PRN SL 04/26/24 16:45 Morphine Sulfate 2 mg Q30M PRN IV 04/26/24 16:45 Iron Sucrose 110 ml @ 110 mls/hr DAILY@1200 IV 04/30/24 12:00 05/04/24 12:59 05/02/24 12:05 110 MLS/HR laboratory and microbiology Laboratory Tests 05/01/24 21:25 04/30/24 06:25 04/29/24 05:54 Test 05/01/24 21:25 Range/Units Serum Glucose 113 H 74-106 mg/dL Assessment/Plan BPH Difficult Champion catheterization Bedside cystoscopy today Plan discussed with: Patient OSEI DELANEY MD May 03, 2024 12:45
--- NOTE | 2024-05-03 13:27 | DVHOP2 ---
Operative Report - 2 Report Details Date: 05/03/24 Preop Diagnosis: BPH Difficult Champion catheter placement Postop Diagnosis: same as pre op Surgeon: Osei Art Anesthesiologist: None Anesthesia: Local Consent: The patient was informed of the risks and benefits of the procedure. These include but are not limited to complications of anesthesia, postoperative infection, incomplete relief of symptoms, recurrence of symptoms, damage to blood vessels, nerves and tendons, deep venous thrombosis, pulmonary embolism and possible need for repeat surgery in the future. Indications for Surgery: Patient had a difficult champion catheter placement. Cystoscopy to be done to assess his BPH and voiding ability. Name of Procedure Performed Cystoscopy (diagnostic) Procedure Details Procedure Details: Consent was obtained. Bedside cystoscopy was planned. Area with the genitalia was prepped and draped in usual manner with the patient in supine position. Existing Champion catheter was removed. Flexible digital cystoscope was used to inspect the urethra, prostatic urethra and bladder. There were no urethral stricture or false urethral passage. Prostatic obstruction was appreciated with [place] lateral lobes and minimal protrusion of the prostate into the bladder. No significant median lobe was appreciated. Bladder showed minimal trabeculation and no foreign bodies, tumors or stones. Cystoscope was removed in entirety with bladder partially filled. Patient tolerated the procedure well. Specimen: None Condition Good Disposition Still a Patient OSEI ART MD May 03, 2024 13:27
[2024-05-04] VITALS (8 sets, daily range): BP systolic 84–106; BP diastolic 43–62; PULSE 69–100; RESP 17–20; TEMP 97.9–98.5; O2SAT 95–99
--- NOTE | 2024-05-04 10:58 | DVHPN2 ---
Progress Note Date Seen: May 04, 2024 Medical Necessity Reason Pt with a Central, PICC or Fol: No Subjective Patient reports: No new complaints Review of Systems: HEENT:Normal, CVS:Normal, RESPIRATORY:Normal, GI:Normal, :Normal, MSK:Normal, NEURO:Normal Objective vital signs Vital Sign Date Time Temp Pulse Resp B/P (MAP) Pulse Ox O2 Delivery O2 Flow Rate FiO2 05/04/24 05:00 98.1 69 19 89/50 (63) 95 98.1 05/03/24 20:00 Room Air* 0 21 Total Intake and Output 05/03/24 05/03/24 05/04/24 15:00 23:00 07:00 Intake Total 1026 ml 300 ml Output Total 300 ml Balance 1026 ml 0 ml medications Current Medications Medications Dose Ordered Sig/Nic Route Start Time Stop Time Status Last Admin Dose Admin Cyclobenzaprine HCl 10 mg TID PO 04/26/24 22:00 UNV Cefazolin Sodium 50 ml @ 100 mls/hr Q8HR IV 04/26/24 22:00 04/28/24 14:29 UNV Ondansetron HCl 4 mg Q4HP PRN IV 04/26/24 16:45 Acetaminophen 650 mg Q6HP PRN PO 04/26/24 16:45 05/03/24 10:58 650 MG Acetaminophen/ Hydrocodone Bitart 1 tab Q6HP PRN PO 04/26/24 16:45 04/30/24 09:37 1 TAB Morphine Sulfate 1 mg Q4HP PRN IV 04/26/24 16:45 04/28/24 05:10 1 MG Cyclobenzaprine HCl 10 mg TID PO 04/26/24 22:00 05/04/24 05:44 10 MG Docusate Sodium 100 mg BID PO 04/26/24 22:00 05/02/24 21:56 100 MG Nitroglycerin 0.4 mg Q5MINP PRN SL 04/26/24 16:45 Morphine Sulfate 2 mg Q30M PRN IV 04/26/24 16:45 Iron Sucrose 110 ml @ 110 mls/hr DAILY@1200 IV 04/30/24 12:00 05/04/24 12:59 05/03/24 14:45 110 MLS/HR Examination: GENERAL:Normal, HEENT:Normal, NECK:Normal, LUNGS:Normal, CVS:Normal, ABDOMEN:Normal, MSK:Normal, MSK:Abnormal (drains+), SKIN:Normal, NEURO:Normal, :Normal laboratory and microbiology Laboratory Tests 05/01/24 21:25 04/30/24 06:25 04/29/24 05:54 Test 05/01/24 21:25 Range/Units Serum Glucose 113 H 74-106 mg/dL Microbiology Date/Time Source Procedure Growth Status 04/27/24 14:00 Urine - Catheterized Urine Culture - Final Complete Problem List/Assessment/Plan Problem List/Assessment/Plan * Benign prostatic hypertrophy: s/p cysto, flomax * Hypotension * acute renal failure ?vasomotor nephropathy *anemia: iv iron * Status post lumbar spine surgery for degenerative joint disease of spine. The patient will be placed on pain medications and receive physical therapy. Plan discussed with: Patient Date of Service: May 04, 2024 Billing Provider: CHIO YAO MD Common Visit Codes: [id number] INP/OBS CARE(HIGH) CHIO YAO MD May 04, 2024 10:58
[2024-05-04] MEDS: TAMSULOSIN HYDROCHLORIDE 0.4 MG CAP PO SCH (17:37)
[2024-05-05 01:00] VITALS: BP 96/52; PULSE 86; RESP 17; TEMP 98.3; O2SAT 95
[2024-05-05 05:00] VITALS: BP 90/53; PULSE 79; RESP 17; TEMP 98; O2SAT 95
[2024-05-05 08:00] VITALS: PULSE 82
[2024-05-05 08:39] VITALS: BP 99/55; PULSE 87; RESP 18; TEMP 98; O2SAT 97
--- NOTE | 2024-05-05 11:44 | DVHDS2 ---
Discharge Summary Date of Admission Apr 26, 2024 at 16:41 Date of Discharge: May 05, 2024 Admitting Diagnosis lumbar spinal stenosis Labs/Diagnostic Data: Laboratory Results Test 05/01/24 21:25 04/30/24 06:25 04/29/24 05:54 04/27/24 11:59 Sodium Level 141 mmol/L (136-145) Potassium Level 3.7 mmol/L (3.5-5.1) Chloride Level 108 mmol/L (98-107) Carbon Dioxide Level 24 mmol/L (20-31) Anion Gap 9 (5-15) Blood Urea Nitrogen 12 mg/dL (9-23) Creatinine 1.16 mg/dL (0.700-1.30) Glomerular Filtration Rate Calc 71 mL/min (>90) BUN/Creatinine Ratio 10.3 (10.0-20.0) Serum Glucose 113 mg/dL (74-106) Calcium Level 9.3 mg/dL (8.7-10.4) Hemoglobin 8.8 g/dL (13.5-17.5) Hematocrit 26.8 % (41.0-53.0) White Blood Count 8.6 10^3/uL (4.4-10.8) Red Blood Count 3.49 10^6/uL (4.5-5.90) Mean Corpuscular Volume 77.9 fL (80.0-100.0) Mean Corpuscular Hemoglobin 24.8 pg (28.0-32.0) Mean Corpuscular Hemoglobin Concent 31.8 g/dL (32.0-36.0) Red Cell Distribution Width 15.7 % (11.8-14.3) Platelet Count 172 10^3/uL (140-450) Mean Platelet Volume 7.2 fL (6.9-10.8) Neutrophils (%) (Auto) 73.2 % (37.0-80.0) Lymphocytes (%) (Auto) 17.0 % (10.0-50.0) Monocytes (%) (Auto) 7.5 % (0.0-12.0) Eosinophils (%) (Auto) 1.8 % (0.0-7.0) Basophils (%) (Auto) 0.5 % (0.0-2.0) Neutrophils # (Auto) 6.3 10 ^3/uL (1.6-8.6) Lymphocytes # (Auto) 1.5 10 ^3/uL (0.4-5.4) Monocytes # (Auto) 0.6 10 ^3/uL (0-1.3) Eosinophils # (Auto) 0.2 10 ^3/uL (0-0.8) Basophils # (Auto) 0 10 ^3/uL (0-0.2) Nucleated Red Blood Cells 0.1 % Total Bilirubin 0.4 mg/dL (0.2-1.0) Aspartate Amino Transferase (AST) 37 U/L (13-40) Alanine Aminotransferase (ALT) 19 U/L (7-40) Alkaline Phosphatase 79 U/L (46-116) Total Protein 4.9 g/dL (5.7-8.2) Albumin 3.2 g/dL (3.2-4.8) Test 04/27/24 06:48 04/22/24 10:57 Prostate Specific Antigen 1.65 ng/mL (0.0-4.0) Prothrombin Time 10.2 sec (9.3-11.8) Prothrombin Time INR 0.96 (0.9-1.15) Activated Partial Thromboplast Time 27.3 SEC (24.5-34.5) Urine Color Light-yellow (Yellow) Urine Clarity Clear (Clear) Urine pH 5.5 (5.0-9.0) Urine Specific [place] 1.019 (1.001-1.035) Urine Protein Negative (Negative) Urine Ketones Negative (Negative) Urine Blood Negative /uL (Negative) Urine Nitrite Negative (Negative) Urine Bilirubin Negative (Negative) Urine Urobilinogen Normal mg/dL (Negative) Urine Leukocyte Esterase Negative /uL (Negative) Urine RBC 1 /hpf (0 - 3) Urine Microscopic WBC < 1 /HPF (0-3) Urine Squamous Epithelial Cells None seen /hpf (<5) Urine Bacteria None seen /hpf (None Seen) Urine Glucose Normal mg/dL (Normal) Other Laboratory Tests 05/01/24 21:25 04/30/24 06:25 04/29/24 05:54 Brief Hx & Hospital Course: pt. underwent lumbar sine surgery without issues. Over the post op course, he had issues with the prostate hypertrophy which required a urology consult. Dr. irving was kind enough to perform a cystoscopy to allow d/c of the champion with impunity over this course of the week, once the prostate issues resolved and when he tolerated po pain meds and passed p.t., plans made to d/c home Operations or Procedures see detailed note Condition at Discharge: Good Final Diagnosis/Problems List same as pre op Discharge Disposition: Home Discharge Instruct/Medications Diet: Regular Diet comment: resular Activity: No Restrictions, As Tolerated Follow Up/Referral: already made for clinic with dr. ojhnson Medications: called in through [facility] to [facility] Discharge Statement: "Patient was advised to return to the ER or call 911 if any headaches, dizziness, shortness of breath, chest pain, abdominal pain, bleeding, fevers, or worsening of medical condition. Patient was counseled about treatment plan, medications, possible side effects, patientverbalized understanding. All questions were answered to the best of my ability. This discharge took greater then 30 minutes in planning, reviewing documentation, counseling the patient, and discussing with other team members." ASSESSMENT ASSESSMENT Assessment same as pre op MANE JOHNSON MD May 05, 2024 11:44
[2024-05-05 13:00] VITALS: BP 89/53; PULSE 101; RESP 18; TEMP 98.1; O2SAT 95
--- NOTE | 2024-05-05 14:08 | DVHPN2 ---
Progress Note Date Seen: May 05, 2024 Medical Necessity Reason Pt with a Central, PICC or Fol: No Subjective Patient reports: No new complaints Review of Systems: HEENT:Normal, CVS:Normal, RESPIRATORY:Normal, GI:Normal, :Normal, MSK:Normal, NEURO:Normal Objective vital signs Vital Sign Date Time Temp Pulse Resp B/P (MAP) Pulse Ox O2 Delivery O2 Flow Rate FiO2 05/05/24 13:00 98.1 101 18 89/53 (65) 95 98.1 05/05/24 08:00 Room Air* 0 21 Total Intake and Output 05/04/24 05/04/24 05/05/24 15:00 23:00 07:00 Intake Total 550 ml 700 ml Output Total 200 ml Balance -200 ml 550 ml 700 ml medications Current Medications Medications Dose Ordered Sig/Nic Route Start Time Stop Time Status Last Admin Dose Admin Cyclobenzaprine HCl 10 mg TID PO 04/26/24 22:00 UNV Cefazolin Sodium 50 ml @ 100 mls/hr Q8HR IV 04/26/24 22:00 04/28/24 14:29 UNV Examination: GENERAL:Normal, HEENT:Normal, NECK:Normal, LUNGS:Normal, CVS:Normal, ABDOMEN:Normal, MSK:Normal, MSK:Abnormal (lumber dressing), SKIN:Normal, NEURO:Normal, :Normal laboratory and microbiology Laboratory Tests 05/01/24 21:25 04/30/24 06:25 04/29/24 05:54 Test 05/01/24 21:25 Range/Units Serum Glucose 113 H 74-106 mg/dL Microbiology Date/Time Source Procedure Growth Status 04/27/24 14:00 Urine - Catheterized Urine Culture - Final Complete Problem List/Assessment/Plan Problem List/Assessment/Plan * Benign prostatic hypertrophy: s/p cysto, flomax * Hypotension * acute renal failure ?vasomotor nephropathy *anemia: iv iron * Status post lumbar spine surgery for degenerative joint disease of spine. The patient will be placed on pain medications and receive physical therapy. drains removed. dc plan to home today Plan discussed with: Patient Date of Service: May 05, 2024 Billing Provider: CHIO YAO MD Common Visit Codes: [id number] INP/OBS CARE(HIGH) CHIO YAO MD May 05, 2024 14:08
== END 2024-05-05 13:30 | disposition home or self-care (01) | DRG 448 ==
LOC: SUR 08:28 → OVERFLOW 16:41 → TELE-EAST 19:30
PROVIDERS: ADMIT Internal Medicine; ATTEND Internal Medicine
PROC: 01NB0ZZ Release Lumbar Nerve, Open Approach (ICD-10-PCS; 2024-04-26)
PROC: 00NY0ZZ Release Lumbar Spinal Cord, Open Approach (ICD-10-PCS; 2024-04-26)
PROC: 4A11X4G Monitoring of Peripheral Nervous Electrical Activity, Intraoperative, External Approach (ICD-10-PCS; 2024-04-26)
PROC: 0SG10AJ Fusion of 2 or more Lumbar Vertebral Joints with Interbody Fusion Device, Posterior Approach, Anterior Column, Open Approach (ICD-10-PCS; principal; 2024-04-26 13:27)
PROC: 0TJB8ZZ Inspection of Bladder, Via Natural or Artificial Opening Endoscopic (ICD-10-PCS; 2024-05-03)
DX: M48.062 Spinal stenosis, lumbar region with neurogenic claudication (principal); N17.9 Acute kidney failure, unspecified; N40.0 Benign prostatic hyperplasia without lower urinary tract symptoms; I10 Essential (primary) hypertension; I95.9 Hypotension, unspecified; R35.1 Nocturia; D64.9 Anemia, unspecified; Z83.3 Family history of diabetes mellitus; Z79.899 Other long term (current) drug therapy; Z79.1 Long term (current) use of non-steroidal anti-inflammatories (NSAID); Z79.891 Long term (current) use of opiate analgesic; Z79.2 Long term (current) use of antibiotics
CPT/HCPCS: 36415; 72110; 76000; 76775; 80048; 80053; 81001; 84153; 85014; 85018; 85025; 85610; 85730; 86850; 86900; 86901; 87086; 97110; 97116; 97163; 97530; G0378; J1100; J1756; J2003; J2250; J2405; J2704